=== PATIENT | female | born 1975 | race Caucasian/White ===

== ENCOUNTER → 2017-05-02 | Outpatient (CLI) | payer OTHER ==
[~2017-05-02] MED LIST: ALL180 PO; EFFSR150 PO; EFFSR75 PO; HYOS1TAB PO; LEVO175T23 PO; MOME50SP5; PRLSR20 PO; PRN10125 PO; SIMV40TA2 PO; [UNRECOGNIZED DRUG - CODE] PO; [UNRECOGNIZED DRUG - CODE] PO
== END | disposition home or self-care (01) ==
LOC: C.LABSPEC 14:10
PROVIDERS: ATTEND Physician Assistant
DX: L29.8 Other pruritus (principal)

== ENCOUNTER 2024-07-30 02:23 | Inpatient (IN) ==
--- NOTE | 2024-07-30 02:52 | Emergency Department Note ---
Impression & Plan Acute hypokalemia Admission ED Provider Note HPI: History obtained from patient. The patient is a 48-year-old female with history of diabetes, hypertension, IBS, presents emergency department with a chief complaint of worsening nausea over the past 3 days. Patient denies any vomiting. Patient states that she is on Ozempic and she has been taking a steady dose for the past year. Patient states that she has had nausea during this time but usually it is not this severe. On arrival here to the ED the patient is hemodynamically stable, she otherwise appears to be in no acute distress. Patient denies any recent fever, denies any vomiting, denies any diarrhea. Patient states that she typically does take Zofran when she gets nausea from her Ozempic however she recently ran out. ROS: - Per HPI Differential Diagnosis: Nonmechanical small bowel obstruction, medication side effect, critical electrolyte abnormalities, acute kidney injury/acute dehydration, viral gastroenteritis, amongst other potential pathologies. *Outpatient medications and allergy history reviewed. PE: General: Alert HEENT: Normocephalic, trachea midline Eyes: Extraocular eye movement is intact, no scleral erythema Pulmonary: Clear to auscultation bilaterally, no wheezing Cardio: Regular rate and rhythm GI: Abdomen is soft to palpation : No suprapubic tenderness MSK: No evidence of trauma or malformation of the extremities, no edema Skin: No evidence of rash Neuro: Alert, no focal deficits Psychiatric: Cooperative INDEPENDENT INTERPRETATIONS: quality assurance monitor final: (As interpreted by myself): - An order was placed for continuous cardiac monitoring - Patient was noted to be in sinus rhythm with a rate of 80 EKG: (As interpreted by myself): Rate: 81 Rhythm: Normal sinus rhythm Intervals: QTc 501 ms, otherwise within normal limits ST changes: No ST elevation Time: 0421 Interventions provided in ED: - IV fluid bolus, IV Zofran, potassium chloride Medical Decision Making: IV was established and lab work obtained, patient was placed on surveillance system monitor. Lab work shows no leukocytosis, hemoglobin is normal, platelet count is normal, CMP shows a critical hypokalemia 2.4, magnesium is within normal limits, serum bicarbonate level is elevated at 33, glucose is 262. EKG does show evidence of a mildly prolonged QT interval, given this in conjunction with hypokalemia patient will require admission. Patient was ordered oral potassium repletion as well as potassium K riders. Patient's abdomen is soft and nontender on my exam, I suspect her poor intake and nausea related to her Ozempic. I discussed all of the above findings with the patient, she is agreeable for admission. Case was discussed with the on-call hospitalist, Dr. Wagner, and the patient was placed for admission in stable condition. Consultants/Discussions held with other healthcare providers: - Hospitalist, Dr. Wagner Disposition discussion held by myself with: - Patient Diagnosis: 1. Hypokalemia, acute 2. Prolonged QT on EKG, acute 3. Nausea, acute Disposition: Admission Heladio Escalante DO Emergency Medicine Past Med/Surg History Problem List (Updated 07/30/24 @ 06:11 by Heladio Escalante DO) Acute hypokalemia (Acute) Irritable bowel syndrome (Chronic) Hypothyroidism (Chronic) Esophageal reflux (Chronic) Vulvitis Chronic vulvitis Diabetes mellitus (Acute) Dysmenorrhea (Acute) Hypertension (Acute) Medical History Diabetes Esophageal reflux History of polycystic ovarian syndrome Hypertension Hypothyroidism Irritable bowel syndrome Surgical History S/P appendectomy S/P cholecystectomy S/P tonsillectomy Family History Aunt Breast cancer thinks diagnosed before 50. unsure if they completed genetic testing Denies family history of Ovarian cancer Colorectal cancer Social History Smoking Status: Never smoker Do You Dip or Chew Tobacco: No; Preferred Language: Uzbek marital status: Feels Safe at Home: Yes Allergies Allergies Allergy/AdvReac Type Severity Reaction Status Date / Time No Known Allergies Allergy Mild Verified 07/30/24 05:36 Home Meds Home Medications Medication Instructions Recorded Confirmed omeprazole 40 mg capsule,delayed PO 03/19/19 02/28/20 release venlafaxine 150 mg PO 03/19/19 02/28/20 capsule,extended release 24 hr aripiprazole 5 mg tablet 5 mg PO DAILY 07/30/24 07/30/24 metformin 1,000 mg tablet 1,000 mg 2XD 07/30/24 07/30/24 omeprazole 20 mg capsule,delayed 20 mg DAILY 07/30/24 07/30/24 release Previous Rx's Medication Instructions Recorded ondansetron HCl 4 mg tablet 4 mg PO Q8H PRN nausea and 11/19/19 (Zofran) vomiting #10 tabs Results & Data (ED) Vital Signs Vital Signs - 24 hr 07/30/24 02:34 07/30/24 03:05 07/30/24 03:11 Temperature 37.1 C Temperature Source Oral Pulse Rate 87 77 81 Pulse Rhythm Respiratory Rate 20 16 Respiratory Depth Normal Blood Pressure 154/100 H 157/79 H Blood Pressure Mean 118 125 Pulse Oximetry 99 99 Oxygen Delivery Method Room Air Oxygen Flow Rate Sepsis Recent Fever Within 48 Hours No Sepsis New/Unexplained Change in Mental Status N/A Sepsis Action Taken by Nursing No Action Required 07/30/24 03:18 07/30/24 03:30 07/30/24 04:00 Temperature Temperature Source Pulse Rate 81 79 82 Pulse Rhythm Regular Respiratory Rate 20 18 18 Respiratory Depth Blood Pressure 168/88 H 170/80 H Blood Pressure Mean 118 109 Pulse Oximetry 99 98 99 Oxygen Delivery Method Room Air Oxygen Flow Rate 0 Sepsis Recent Fever Within 48 Hours Sepsis New/Unexplained Change in Mental Status Sepsis Action Taken by Nursing 07/30/24 04:30 07/30/24 05:00 Temperature Temperature Source Pulse Rate 82 84 Pulse Rhythm Respiratory Rate 17 19 Respiratory Depth Blood Pressure 167/87 H 129/67 Blood Pressure Mean 103 87 Pulse Oximetry 99 99 Oxygen Delivery Method Oxygen Flow Rate Sepsis Recent Fever Within 48 Hours Sepsis New/Unexplained Change in Mental Status Sepsis Action Taken by Nursing Laboratory Data 07/30/24 02:46 07/30/24 02:46 Lab Results 07/30/24 07/30/24 Range/Units 02:46 03:00 WBC 10.44 (4.8-10.8) K/ul RBC 5.33 (4.20-5.40) M/uL Hgb 14.0 (12.0-16.0) g/dl Hct 42.5 (37.0-47.0) % MCV 79.7 L (80.0-100.0) fL MCH 26.3 (25.0-34.0) pg MCHC 32.9 (32.0-36.0) g/dL RDW Std Deviation 42.2 (36.4-46.3) fL RDW Coeff of Kalina 14.7 H (11.5-14.5) % Plt Count 343 (130-400) K/uL MPV 9.6 (9.4-12.4) fL Immature Gran % (Auto) 0.4 % Neut % (Auto) 70.5 % Lymph % (Auto) 19.0 % [place] % (Auto) 8.5 % Eos % (Auto) 1.1 % Baso % (Auto) 0.5 % Neut # (Auto) 7.36 H (1.40-6.50) K/uL Lymph # (Auto) 1.98 (1.20-3.40) K/uL [place] # (Auto) 0.89 H (0.11-0.59) K/uL Eos # (Auto) 0.12 (0.00-0.50) K/uL Baso # (Auto) 0.05 (0.00-0.20) K/uL Immature Gran # (Auto) 0.04 (0.01-0.20) K/uL Sodium 136 (136-145) mmol/L Potassium 2.4 L* (3.5-5.1) mmol/L Chloride 91 L (98-107) mmol/L Carbon Dioxide 33 H (21-32) mmol/L Anion Gap 12 H (3-11) BUN 10 (6-23) mg/dl Creatinine 0.89 (0.6-1.2) mg/dl Est Cr Clr Drug Dosing 99.4 ml/min eGFR 78.93 BUN/Creatinine Ratio 11.2 (10-20) Glucose 262 H (70-99(Fasting)) mg/dl Calcium 10.0 (8.6-10.3) mg/dl Magnesium 1.7 (1.7-2.4) mg/dl Total Bilirubin 0.6 (0.2-1.0) mg/dl AST 14 (13-39) U/L ALT 11 (7-52) U/L Alkaline Phosphatase 91 (34-104) U/L Total Protein 8.3 (6.0-8.3) gm/dl Albumin 4.6 (3.4-5.0) gm/dl Globulin 3.7 (2.5-4.0) gm/dl Albumin/Globulin Ratio 1.2 (0.9-2) Lipase 25 (11-82) U/L Urine Color Yellow Urine Appearance Clear (Clear) Urine pH 5.5 (4.5-7.5) Ur Specific [place] 1.036 H (1.000-1.030) Urine Protein Negative (Negative) Urine Glucose (UA) 3+ H (Negative) Urine Ketones 1+ H (Negative) Urine Blood Negative (Negative) Urine Nitrite Negative (Negative) Urine Bilirubin Negative (Negative) Urine Urobilinogen Negative (Negative) Ur Leukocyte Esterase Negative (Negative) Administered Medications Potassium Chloride (K Angel / Wtr) 10 meq in 100 mls @ 100 mls/hr IV Q1H MAIDA Stop: 07/30/24 06:44 Last Admin: 07/30/24 04:48 Dose: 100 mls/hr Documented By: Infusion: 07/30/24 04:48 Dose: Infused Documented By: Admin: 07/30/24 04:48 Dose: 100 mls/hr Documented By: BOLA Magnesium Sulfate/Dextrose (Magnesium Sulfate / D5w) 1 gm in 100 mls @ 50 mls/hr IV Q2H MAIDA Stop: 07/30/24 09:14 Last Admin: 07/30/24 05:20 Dose: 50 mls/hr Documented By: BOLA Potassium Chloride 20 meq/ (Lactated Ringer's) 1,010 mls @ 60 mls/hr IV .[id number] ONE Stop: 07/30/24 22:39 Last Admin: 07/30/24 05:50 Dose: 60 mls/hr Documented By: BOLA Discontinued Medications Sodium Chloride (Nss) 1,000 mls @ 999 mls/hr IV .Q1H1M STA Stop: 07/30/24 03:46 Last Infusion: 07/30/24 04:22 Dose: Infused Documented By: Admin: 07/30/24 02:55 Dose: 999 mls/hr Documented By: BOLA Lisinopril (Lisinopril 10 Mg Tab) 10 mg PO NOW STA Stop: 07/30/24 05:07 Last Admin: 07/30/24 05:50 Dose: 10 mg Documented By: BOLA Ondansetron HCl (Ondansetron Inj 2 Mg/Ml 2 Ml Vial) 4 mg IV NOW STA Stop: 07/30/24 02:47 Last Admin: 07/30/24 02:55 Dose: 4 mg Documented By: BOLA Potassium Chloride (Potassium Chloride Pwd 20 Meq Pack) 40 meq PO NOW STA Stop: 07/30/24 04:05 Last Admin: 07/30/24 04:16 Dose: 40 meq Documented By: BOLA Potassium Chloride (Potassium Chloride Pwd 20 Meq Pack) 40 meq PO NOW STA Stop: 07/30/24 05:07 Last Admin: 07/30/24 05:18 Dose: 40 meq Documented By: BOLA Discharge Plan Visit Data Chief Complaint: Nausea Stated Complaint: EXTREME NAUSEA ED Provider: Heladio Escalante Discharge Problem: Acute hypokalemia Forms Stand Alone Forms: [employer] Prescriptions Prescriptions: No Action ondansetron HCl [Zofran] 4 mg tablet 4 mg PO Q8H PRN (Reason: nausea and vomiting) Qty: 10 0RF Rx Instructions: Take 1 tablet by mouth every 8 hours for nausea/vomiting. omeprazole 40 mg capsule,delayed release(DR/EC) PO Rx Instructions: Please clarify dose and frequency with patient venlafaxine 150 mg capsule,extended release 24hr PO Rx Instructions: Please clarify dose and frequency with patient aripiprazole 5 mg tablet 5 mg PO DAILY metformin 1,000 mg tablet 1,000 mg 2XD omeprazole 20 mg capsule,delayed release(DR/EC) 20 mg DAILY Referrals Referrals: Rajinder Meza MD [Primary Care Provider] -
[2024-07-30] MEDS: ONDANSETRON INJ 2 MG/ML 2 ML VIAL IV STA (02:55)
[2024-07-30] MEDS: SODIUM CHLORIDE 0.9% 1,000 ML IV STA (02:55)
[2024-07-30 03:24] LABS: Appearance Urine Clear (Clear); Bilirubin Urine Negative (Negative); Blood Urine Negative (Negative); Color Urine Yellow; Glucose Urine UA 3+ (Negative); Ketones Urine 1+ (Negative); Leukocyte Esterase Urine Negative (Negative); Nitrite Urine Negative (Negative); Protein Urine Negative (Negative); Specific Gravity Urine 1.036 (1.000-1.030); Urobilinogen Urine Negative (Negative); pH Urine 5.5 (4.5-7.5)
[2024-07-30 03:33] LABS: Basophils # (auto) 0.05 K/uL (0.00-0.20); Basophils % (auto) 0.5 %; Eosinophils # (auto) 0.12 K/uL (0.00-0.50); Eosinophils % (auto) 1.1 %; Hematocrit (blood only) 42.5 % (37.0-47.0); Immature Granulocytes # (auto) 0.04 K/uL (0.01-0.20); Immature Granulocytes % (auto) 0.4 %; Lymphocytes # (auto) 1.98 K/uL (1.20-3.40); Mean Corpuscular Hemoglobin 26.3 pg (25.0-34.0); Mean Corpuscular Hgb Conc 32.9 g/dL (32.0-36.0); Mean Corpuscular Volume 79.7 fL (80.0-100.0); Mean Platelet Volume 9.6 fL (9.4-12.4); Monocytes # (auto) 0.89 K/uL (0.11-0.59); Monocytes % (auto) 8.5 %; Neutrophils # (auto) 7.36 K/uL (1.40-6.50); Neutrophils % (auto) 70.5 %; Platelet Count 343 K/uL (130-400); RDW Coefficient of Variation 14.7 % (11.5-14.5); RDW Standard Deviation 42.2 fL (36.4-46.3); Red Blood Count 5.33 M/uL (4.20-5.40); White Blood Count 10.44 K/ul (4.8-10.8)
[2024-07-30 04:02] LABS: Albumin Globulin Ratio 1.2 (0.9-2); Albumin Level 4.6 gm/dl (3.4-5.0); BUN Creatinine Ratio 11.2 (10-20); Bilirubin,Total 0.6 mg/dl (0.2-1.0); Creatinine Clr Calc Pharmacy 99.4 ml/min; Globulin 3.7 gm/dl (2.5-4.0); Total Protein 8.3 gm/dl (6.0-8.3)
[2024-07-30] MEDS: POTASSIUM CHLORIDE PWD 20 MEQ PACK PO STA ×3 (04:16→20:13)
[2024-07-30 04:35] LABS: Magnesium 1.7 mg/dl (1.7-2.4)
[2024-07-30 04:36] LABS: Potassium 2.4 mmol/L (3.5-5.1)
[2024-07-30] MEDS: POTASSIUM CHLORIDE / WTR 10 MEQ/100 ML PLCT IV SCH (04:48)
[2024-07-30] MEDS ORDERED: PROMETHAZINE 12.5 MG/50.5 ML BAG IV PRN (05:08)
[2024-07-30] MEDS ORDERED: ACETAMINOPHEN 325 MG TAB PO PRN (05:08)
[2024-07-30] MEDS: MAGNESIUM SULFATE / D5W 1 GM/100 ML BAG IV SCH (05:20)
--- NOTE | 2024-07-30 05:44 | History & Physical Report ---
Date of Service July 30, 2024 Assessment & Plan (1) Acute hypokalemia: Plan: Hypokalemia Multifactorial: Decreased p.o. intake secondary to severe nausea symptoms possibly from home Ozempic Rx, patient maintenance dose may need to be decreased by prescribing pha rmacist Home diuretic contributory hypertension, elevated secondary to discomfort hyperlipidemia, on statin Rx GERD, stable on PPI DM2 on oral medications, suboptimal control as of hemoglobin A1c of 9.4 from 2022 hypothyroidism, TSH markedly elevated secondary to noncompliance with medication, patient missed taking prescription the last few months for unclear reasons Admit to med/tele Replace potassium Consider decreasing maintenance Ozempic dose on discharge given nausea symptoms leading to decreased p.o. intake IVF, hold home diuretic until patient euvolemic Titrate home lisinopril Basal bolus insulin adjusted for clear liquid diet for now, ISS BG goal 110-140, carb count coverage, update hemoglobin A1c Levothyroxine 200 mcg p.o. daily (patient home dose 150 mcg p.o. daily), recheck TSH outpatient after 6 weeks DVT prophylaxis per Lovenox subcu Full code Text document was generated using [employer] voice recognition software. It may contain grammatical or spelling errors. Kindly contact undersigned for clarification of any documentation item in question. History of Present Illness Chief Complaint: Nausea symptoms Primary Care Provider: Rajinder Meza MD History obtained from patient and records. Medical history significant for hypertension, hyperlipidemia, GERD, DM2 on oral medications, hypothyroidism, IBS, polycystic ovaries as per records, mood disorder Last confinement 2010 for enteritis and UTI. Few days history of worsening nausea symptoms without headache, abdominal pain, vomiting, chest pain, SOB. Usual loose stools as per patient. Symptoms started a day after last dose of weekly Ozempic Rx. No change in Ozempic dose for about 2 years now as per patient. Poor appetite at home. Patient consulted ER for evaluation. Medical History as above Surgical History : Tonsillectomy/adenoidectomy, appendectomy, cholecystectomy, dental surgery Family History : DM, skin cancer Personal/Social history : Non-smoker, no EtOH intake, [employer] employee Allergies Allergy/AdvReac Type Severity Reaction Status Date / Time No Known Allergies Allergy Mild Verified 07/30/24 05:36 Home Medications Medication Instructions Recorded Confirmed Type venlafaxine 150 mg 150 mg PO QAM 03/19/19 07/30/24 History capsule,extended release 24 hr aripiprazole 5 mg tablet 5 mg PO DAILY 07/30/24 07/30/24 History dapagliflozin propanediol 10 mg 10 mg DAILY 07/30/24 07/30/24 History tablet (Farxiga) diclofenac sodium 1 % topical gel 1 inch topical 3XD PRN Pain 07/30/24 07/30/24 History levothyroxine 125 mcg tablet 125 mcg DAILY 07/30/24 07/30/24 History lisinopril 10 10 - 12.5 tab DAILY 07/30/24 07/30/24 History mg-hydrochlorothiazide 12.5 mg tablet metformin 1,000 mg tablet 1,000 mg 2XD 07/30/24 07/30/24 History omeprazole 20 mg capsule,delayed 20 mg DAILY 07/30/24 07/30/24 History release ondansetron HCl 4 mg tablet 4 mg PO Q6H PRN Nausea 07/30/24 07/30/24 History rosuvastatin 40 mg tablet 40 mg PO DAILY 07/30/24 07/30/24 History semaglutide 2 mg/dose (8 mg/3 mL) 2 mg subcut WK 07/30/24 07/30/24 History subcutaneous pen injector (Ozempic) Past Med/Surg History Problem List (Updated 07/30/24 @ 06:11 by Heladio Escalante DO) Acute hypokalemia (Acute) Irritable bowel syndrome (Chronic) Hypothyroidism (Chronic) Esophageal reflux (Chronic) Vulvitis Chronic vulvitis Diabetes mellitus (Acute) Dysmenorrhea (Acute) Hypertension (Acute) Medical History Diabetes Esophageal reflux History of polycystic ovarian syndrome Hypertension Hypothyroidism Irritable bowel syndrome Surgical History S/P appendectomy S/P cholecystectomy S/P tonsillectomy Family History Aunt Breast cancer thinks diagnosed before 50. unsure if they completed genetic testing Denies family history of Ovarian cancer Colorectal cancer Social History Smoking Status: Never smoker Do You Dip or Chew Tobacco: No; Preferred Language: Mohawk marital status: Feels Safe at Home: Yes Review of Systems Review of Systems: As per HPI, all other systems reviewed and negative Physical Exam Physical Exam: GENERAL: Comfortable, pleasant, obese, no respiratory distress SKIN: Normal color, warm HEENT: [place] palpebral conjunctivae, no ptosis, dry buccal mucosa NECK : Supple, short neck, no tenderness CHEST : CTA, no tenderness HEART : RRR, no obvious murmurs ABDOMEN: Some distention, nontender EXTREMITIES : Bilateral LE swelling, no LE tenderness, palpable pulses, no other conspicuous deformities noted NEUROLOGIC : Coherent, no facial asymmetry, no other gross focality Results & Data Results & Data Vital Signs (Past 12 Hours) Vital Signs Temp Pulse Resp BP Pulse Ox O2 Del Method O2 Flow Rate 07/30/24 04:30 82 17 167/87 H 99 07/30/24 04:00 82 18 170/80 H 99 07/30/24 03:30 79 18 168/88 H 98 07/30/24 03:18 81 20 99 Room Air 0 07/30/24 03:11 81 07/30/24 03:05 77 16 157/79 H 99 07/30/24 02:34 37.1 C 87 20 154/100 H 99 Room Air Laboratory Results Laboratory Results WBC 10.44 K/ul (4.8-10.8) 07/30/24 02:46 RBC 5.33 M/uL (4.20-5.40) 07/30/24 02:46 Hgb 14.0 g/dl (12.0-16.0) 07/30/24 02:46 Hct 42.5 % (37.0-47.0) 07/30/24 02:46 MCV 79.7 fL (80.0-100.0) L 07/30/24 02:46 MCH 26.3 pg (25.0-34.0) 07/30/24 02:46 MCHC 32.9 g/dL (32.0-36.0) 07/30/24 02:46 RDW Std Deviation 42.2 fL (36.4-46.3) 07/30/24 02:46 RDW Coeff of Kalina 14.7 % (11.5-14.5) H 07/30/24 02:46 Plt Count 343 K/uL (130-400) 07/30/24 02:46 MPV 9.6 fL (9.4-12.4) 07/30/24 02:46 Immature Gran % (Auto) 0.4 % 07/30/24 02:46 Neut % (Auto) 70.5 % 07/30/24 02:46 Lymph % (Auto) 19.0 % 07/30/24 02:46 [place] % (Auto) 8.5 % 07/30/24 02:46 Eos % (Auto) 1.1 % 07/30/24 02:46 Baso % (Auto) 0.5 % 07/30/24 02:46 Neut # (Auto) 7.36 K/uL (1.40-6.50) H 07/30/24 02:46 Lymph # (Auto) 1.98 K/uL (1.20-3.40) 07/30/24 02:46 [place] # (Auto) 0.89 K/uL (0.11-0.59) H 07/30/24 02:46 Eos # (Auto) 0.12 K/uL (0.00-0.50) 07/30/24 02:46 Baso # (Auto) 0.05 K/uL (0.00-0.20) 07/30/24 02:46 Immature Gran # (Auto) 0.04 K/uL (0.01-0.20) 07/30/24 02:46 Sodium 136 mmol/L (136-145) 07/30/24 02:46 Potassium 2.4 mmol/L (3.5-5.1) L* 07/30/24 02:46 Chloride 91 mmol/L (98-107) L 07/30/24 02:46 Carbon Dioxide 33 mmol/L (21-32) H 07/30/24 02:46 Anion Gap 12 (3-11) H 07/30/24 02:46 BUN 10 mg/dl (6-23) 07/30/24 02:46 Creatinine 0.89 mg/dl (0.6-1.2) 07/30/24 02:46 Est Cr Clr Drug Dosing 99.4 ml/min 07/30/24 02:46 eGFR 78.93 07/30/24 02:46 BUN/Creatinine Ratio 11.2 (10-20) 07/30/24 02:46 Glucose 262 mg/dl (70-99(Fasting)) H 07/30/24 02:46 Calcium 10.0 mg/dl (8.6-10.3) 07/30/24 02:46 Magnesium 1.7 mg/dl (1.7-2.4) 07/30/24 02:46 Total Bilirubin 0.6 mg/dl (0.2-1.0) 07/30/24 02:46 AST 14 U/L (13-39) 07/30/24 02:46 ALT 11 U/L (7-52) 07/30/24 02:46 Alkaline Phosphatase 91 U/L (34-104) 07/30/24 02:46 Total Protein 8.3 gm/dl (6.0-8.3) 07/30/24 02:46 Albumin 4.6 gm/dl (3.4-5.0) 07/30/24 02:46 Globulin 3.7 gm/dl (2.5-4.0) 07/30/24 02:46 Albumin/Globulin Ratio 1.2 (0.9-2) 07/30/24 02:46 Lipase 25 U/L (11-82) 07/30/24 02:46 Urine Color Yellow 07/30/24 03:00 Urine Appearance Clear (Clear) 07/30/24 03:00 Urine pH 5.5 (4.5-7.5) 07/30/24 03:00 Ur Specific [place] 1.036 (1.000-1.030) H 07/30/24 03:00 Urine Protein Negative (Negative) 07/30/24 03:00 Urine Glucose (UA) 3+ (Negative) H 07/30/24 03:00 Urine Ketones 1+ (Negative) H 07/30/24 03:00 Urine Blood Negative (Negative) 07/30/24 03:00 Urine Nitrite Negative (Negative) 07/30/24 03:00 Urine Bilirubin Negative (Negative) 07/30/24 03:00 Urine Urobilinogen Negative (Negative) 07/30/24 03:00 Ur Leukocyte Esterase Negative (Negative) 07/30/24 03:00 Diagnostic Findings EKG as per my interpretation :Rate 80, NSR, LAD, LAFB, nonspecific T wave abnormalities
[2024-07-30] MEDS: POTASSIUM CHLORIDE 20 MEQ in LACTATED RINGER'S 1,000 ML IV ONE (05:50)
[2024-07-30] MEDS: lisinopril 10 MG TAB PO STA (05:50)
[2024-07-30] MEDS ORDERED: DICLOFENAC SOD 1% GEL 100 GM TUBE EXT PRN (06:25)
[2024-07-30 07:01] LABS: Thyroid Stimulating Hormone 45.271 uIu/ml (0.300-4.500)
[2024-07-30 07:15] LABS: Estimated Average Glucose 209 mg/dl; Hemoglobin A1C 8.9 % (4.5-5.6)
[2024-07-30] MEDS: POTASSIUM CHLORIDE PWD 20 MEQ PACK PO ONE (07:35)
[2024-07-30 07:38] LABS: T4 Free Thyroxine 0.52 ng/dl (0.61-1.60)
--- OUTSIDE RECORDS SUMMARY | 2024-07-30 07:51 | External Medical Summary | Summary of Care ---
Author Name Unknown Organization [facility] Address [address] [place] [address] Phone [phone] Care Team Providers Care Library Consultant Name Role Phone Derrick ZAVALA MD, Bee Groves Primary Care Provider [phone] Reason for Visit * Reason Onset Date Comments Medication Refill 05/13/2024 Encounter Details Date Type Department Care Team (Late st Contact Info) Description 05/13/[address] [facility] [address] [facility] [place] [address] Dorina Anne PA-C [address] [facility] [place] [address] Type 2 diabetes mellitus with hemoglobin A1c goal of less than 7.0% (HCC) Allergies No known active allergiesdocumented as of this encounter (statuses as of 05/20/2024) Medications Jasper Meyers Lancets 33GIndications:T ype 2 diabetes mellitus with hemoglobin A1c goal of less than 7.5% (HCC) 1 times daily to check blood sugars.E11.9 100 Each 023 Active Additional Information Patient not taking.Reported on 07/31/2023 OneTouch Verio In Vitro Strip (Glucose Blood)Indication s:Type 2 diabetes mellitus with hemoglobin A1c goal of less than 7.5% (HCC) Use up to 1 times a day E11.9 100 Strip 2 023 Active Additional Information Patient not taking.Reported on 07/31/2023 [employer] Fun[employer] w/Device KitIndications:T ype 2 diabetes mellitus with hemoglobin A1c goal of less than 7.5% (HCC) Use up to 4 times a day E11.9 1 Kit 023 Active Additional Information Patient not taking.Reported on 07/31/2023 Ondansetron 4 MG Oral Tablet Disintegrating (Zofran) Place 1 Tablet on tongue every 8 hours as needed for Nausea. dissolve on tongue. 30 Tablet 1 023 Active Diclofenac Sodium 1 % External Gel (Voltaren) Apply topically to affected area 3 times a day as needed for Pain. Apply to affected area 100 g 2 024 Active Levothyroxine Sodium 125 MCG Oral Tablet (Levoxyl) Take 1 Tablet by mouth in the morning. (at least 30 min prior to breakfast or other meds). 30 Tablet 11 024 Active Rosuvastatin Calcium 40 MG Oral Tablet (Crestor)Indicat ions:Hyperlipide amairani with target LDL less than 100 TAKE 1 TABLET BY MOUTH EVERY DAY IN THE MORNING 90 Tablet 2 024 Active Lisinopril-hydro CHLOROthiazide 10-12.5 MG Oral TabletIndication s:Elevated blood pressure, situational TAKE 1 TABLET BY MOUTH EVERY DAY IN THE MORNING 90 Tablet 2 024 Active Farxiga 10 MG Oral Tablet (Dapagliflozin Propanediol)Melanie cations:Type 2 diabetes mellitus with hemoglobin A1c goal of less than 7.5% (HCC) TAKE 1 TABLET BY MOUTH EVERY DAY IN THE MORNING 30 Tablet 11 024 Active Venlafaxine HCl ER 150 MG Oral Capsule Extended Release 24 Hour (Effexor XR)Indications:M oderate episode of recurrent major depressive disorder (HCC) TAKE 1 CAPSULE BY MOUTH EVERY DAY IN THE MORNING 90 Capsule 1 024 Active ARIPiprazole 5 MG Oral Tablet (Abilify) TAKE 1 TABLET BY MOUTH EVERY DAY IN THE MORNING 15 Tablet 024 Active Ozempic (2 MG/DOSE) 8 MG/3ML Subcutaneous Solution Pen-injector (Semaglutide (2 MG/DOSE))Indicat ions:Type 2 diabetes mellitus with hemoglobin A1c goal of less than 7.5% (HCC) INJECT 2 MG SUBCUTANEOUSLY ONE TIME PER WEEK 9 mL 1 025 Active metFORMIN HCl 1000 MG Oral Tablet (Glucophage)Melanie cations:Type 2 diabetes mellitus with hemoglobin A1c goal of less than 7.0% (HCC) Take 1 Tablet by mouth 2 times a day with morning and evening meals. 60 Tablet 025 Active Omeprazole 20 MG Oral Capsule Delayed Release (PriLOSEC)Indica tions:Esophageal reflux TAKE 1 CAPSULE BY MOUTH IN THE MORNING AND AT BEDTIME 60 Capsule 5 024 2024 Discontinued Venlafaxine HCl ER 75 MG Oral Capsule Extended Release 24 Hour (Effexor XR)Indications:M oderate episode of recurrent major depressive disorder (HCC) TAKE 1 CAPSULE BY MOUTH EVERY DAY IN THE MORNING 30 Capsule 5 024 2024 Discontinued metFORMIN HCl 1000 MG Oral Tablet (Glucophage)Melanei cations:Type 2 diabetes mellitus with hemoglobin A1c goal of less than 7.0% (HCC) TAKE 1 TABLET BY MOUTH 2 TIMES A DAY WITH MORNING AND EVENING MEALS 60 Tablet 5 024 2024 Discontinued(R efill) documented as of this encounter (statuses as of 05/20/2024) Active Problems Problem Noted Date Diagnosed Date Moderate episode of recurrent major depressive d isorder 07/31/2023 Major depressive disorder, recurrent, unspecifie d 04/07/2020 HTN, goal below 140/90 06/29/2015 Overview: Per HTN Protocol #27. Neoplasm of uncertain behavior of skin 4 Malaise and fatigue 12/12/2010 Myalgia and myositis 12/12/2010 Obesity, morbid (more than 1 00 lbs over ideal weight or BMI > 40) 10/06/2009 Overview (07/13/2015): Per Obesity Protocol, #19 ICD-10 update of inactive term DYSLIPIDEMIA, GOAL LDL BELOW 100 04/09/2009 Overview (04/09/2009): Per Lipid Taxonomy. Type 2 diabetes mellitus wit h hemoglobin A1c goal of less than 7.0% 02/05/2009 Overview (08/18/2015): Modified per Diabetes protocol #14. ICD-10 update of inactive term ESOPHAGEAL REFLUX 12/17/2008 Allergic rhinitis 01/21/2008 Other chronic allergic conjunctivitis 01/24/2007 IRON DEFIC ANEMIA NOS 11/27/2003 Hypothyroidism 07/30/2003 Irritable bowel syndrome Major depressive disorder Overview (02/14/2017): ICD-10 update of inactive term documented as of this encounter (statuses as of 05/20/2024) Resolved Problems Problem Noted Date Diagnosed Date Resolved Date HTN, GOAL BELOW 140/80 12/12/201107/28 Overview: Per HTN Protocol #27. HTN, GOAL BELOW 130/80 05/21/200912/14 Overview (05/21/2009): Per HTN Taxonomy. ADVANCE DIRECTIVE INFORMATION 06/12/2008 02/26/2024 Overview (06/12/2008): No, Advance Directive brochure given to patient. Dyslipidemia, goal to be determined 06/09/2008 04/09/2009 Overview (04/09/2009): Per Lipid Taxonomy. DM type 2, not at goal 07/18/200702/05 Overview (02/05/2009): Modified per Diabetes protocol #14. HTN, goal below 140/90 05/17/200705/21 Overview (05/21/2009): Per HTN Taxonomy. RHINITIS ALLERGIC, DUE TO POLLEN 10/18/2004 01/21/2008 ADVANCE DIRECTIVE INFORMATION 08/13/2004 01/21/2008 Overview (08/13/2004): No, Advance Directive brochure given to patient. documented as of this encounter (statuses as of 05/20/2024) Immunizations Name Administration Dates Next Due COVID-19 mRNA, LNP-s, No Pre serve, 2-Dose Series ([place]) 04/03/2021,07/17/2020,06/19/2020 Hepatitis B, 20+ yrs 09/20/2013,04/10/2013,03/1109/09/2013 Pneumococcal Polysaccharide PPV23 (Pneumovax) 11/21/2007 Seasonal Influenza Vac., MDV , IM, 0.5 mL (Fluzone) 02/19/2014,03/11/2013,02/04/2012,02/22,01/16/2009,02/26/2008,02/07/20 03,02/22/2002,04/04/2001,03/23/2000 01/16/2010 Seasonal Influenza Virus Vac cine, Unspecified Formulation 02/26/2008 Seasonal Influenza, Quadriva lent, No Preserve, IM 01/18/2020,02/09/2016 Seasonal Influenza, Quadriva lent, No Preserve, Peds 04/03/2021 TD, Preservative Free 04/27/2016 TDAP, Age 7 and older, IM (Adacel) 11/21/2007 documented as of this encounter Social History Tobacco Use Types Packs/Day Years Used Date Smoking Tobacco: Never Smokeless Tobacco: Never Comments:No passive smoke ex posure Alcohol Use Standard Drinks/Week Comments No 0 (1 standard drink = 0.6 oz pur e alcohol) PHQ-2 Answer Date Recorded PHQ Adult Total Score 0 12/16/2021 Hunger Vital Sign Answer Date Recorded Within the past 12 months, y ou worried that your food would run out before you got the money to buy more. Never true 11/04/19 23 Within the past 12 months, t he food you bought just didn't last and you didn't have money to get more. 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 * Telephone Encounter - Cristina Harris OSA - 05/14/2024 2:30 PM EST Contacted pt, left message, gave central scheduling number * Telephone Encounter - Juancho Richardson CMA - 05/14/2024 11:36 AM EST Please schedule pt with Derrick for future refills, temp 1 month supply sent. * Telephone Encounter - Bee Alcala III, MD - 05/14/2024 7:55 AM ESTSigned Prescriptions: Disp Refills metFORMIN HCl 1000 MG Oral Tablet (Glucoph*60 Tab*0 Sig: Take 1 Tablet by mouth 2 times a day with morning and evening meals.Authorizing Provider: BEE ALCALA III- * Telephone Encounter - Bee Alcala III, MD - 05/14/2024 7:55 AM EST appt * Telephone Encounter - Susan Soto LPN - 05/13/2024 3:35 PM ESTPending Prescriptions: Disp Refills metFORMIN HCl 1000 MG Oral Tablet (Glucoph*60 Tab*5 Sig: Take 1 Tablet by mouth 2 times a day with morning and evening meals. * Telephone Encounter - Adrienne Lim, KAL - 05/13/2024 3:31 PM EST Did you pend patient's preferred pharmacy and medication before forwarding?yes Pharmacy: [id number] [address] [facility] Pending Prescriptions: Disp Refills metFORMIN HCl 1000 MG Oral Tablet (Glucop*60 Tab*5 Sig: Take 1 Tablet by mouth 2 times a day with morning and evening meals. Last Visit: 12/16/2021 (in office), 07/31/2023 (telemedicine) Next Visit: Visit date not found If no future appointments scheduled, and last appointment is greater than a year ago, please schedule patient for a follow-up appointment Last date the medication was ordered: 12.18.23 Is this request for a controlled substance?No Urine Drug Screen:No results found. However, due to the size of the patient record, not all encounters were searched. Please check Results Review for a complete set of results. Patient Phone Numbers Labs: Lab Results Component Value Date/Time CREAT 0.61 08/25/2023 12:00 AM CREAT 0.7 04/01/2020 10:51 AM POTASSIUM 3.2 (L) 08/25/2023 12:00 AM POTASSIUM 3.7 04/01/2020 10:51 AM TSH \0.04 (L) 08/25/2023 12:00 AM TSH 20.10 (H) 04/01/2020 10:51 AM LDL 178 (H) 11/01/2022 10:40 AM LDL 90 03/09/2016 07:44 AM LDL NOT APPLICABLE 03/09/2016 07:44 AM LDLCALC 88 08/25/2023 12:00 AM ALT 19 06/29/2021 03:39 PM ALT 24 07/09/2018 01:33 PM HGBA1C 9.8 (H) 08/25/2023 12:00 AM HGBA1C 10.1 (H) 04/01/2020 10:51 AM documented in this encounter Plan of Treatment Scheduled Procedures Name Priority Associated Diagnoses Date/Ti me COLONOSCOPY FLEXIBLE PROXIMA L DIAGNOSTIC Recall Special screening for malignant neoplasms, colon Health Maintenance Due Date Last Done Comments HPV/Co-Test 10/05/2003 Pneumococcal Vaccine: 50+ Years (2 of 2 - PCV) 11/20/2008 11/21/2007 Mammogram 2013 Cologuard 2018 Colonoscopy 2018 Colorectal Cancer Screening 2018 Fecal Occult Blood Test 2018 Sigmoidoscopy 2018 Cervical Cancer Screening 01/03/2022 Pap Smear 01/03/2022 01/03/2019, 11/22, 12/10/2014 (Done elsewhere), Additional history exists Albumin/Creatinine Ratio 06/29/2022 022, 03/09/2016, 12/30/2014, Additional history exists Diabetic Foot Exam 06/29/2022 06/29/2021, 1 06/08/2019, 07/30/2018, Additional history exists Depression Monitoring 12/16/2022 12/16/2021 Diabetic Eye Exam 01/05/2023 01/05/2022, , 04/26/2018, Additional history exists Zoster Vaccines (1 of 2) 10/05/2023 B-12 11/02/2023 11/01/2022, 03/0 11/2021, 04/01/2020, Additional history exists HbA1c 02/25/2024 08/25/2023, 10/22, 06/29/2021, Additional history exists GFR 08/24/2024 08/25/2023, 10/22, 06/29/2021, Additional history exists TSH 08/24/2024 08/25/2023, 10/22, 06/29/2021, Additional history exists DTap/Tdap Vaccines (3 - Td or Tdap) 04/27/2026 04/27/2016, 11/21/2007 Lipid Panel 08/24/2028 08/25/2023, 10/22, 03/09/2016, Additional history exists Hepatitis B Vaccine Completed 09/20/2013, 04/10/2013, 03/11/2013 COVID-19 Vaccine Completed 03/02/2024, 02/2021, 07/17/2020, Additional history exists Influenza Vaccine (FLU shot) Completed 12/2023, 04/03/2021, 01/18/2020, Additional history exists HPV (Gardasil) Vaccine Aged Out No lo nger eligible based on patient's age to complete this topic MENINGOCOCCAL (MENACTRA/MENVEO) Aged Out No longer eligible based on patient's age to complete this topic documented as of this encounter Medical Devices Not on filedocumented as of this encounter Visit Diagnoses Diagnosis Type 2 diabetes mellitus with hemoglobin A1c goal of less than 7.0% (HCC) documented in this encounter Care Teams Library Consultant Relationship Specialty Start Date End Date Bee Alcala III, MD [address] [place] [address] PCP - General 06/06/02 documented as of this encounter
--- OUTSIDE RECORDS SUMMARY | 2024-07-30 07:51 | External Medical Summary | Summary of Care ---
Author Name Unknown Organization [facility] Address [address] [place] [address] Phone [phone] Care Team Providers Care Weed Cooking Operator Name Role Phone Derrick ZAVALA MD, John E Primary Care Provider [phone] Reason for Visit * Reason Onset Date Comments Encounter Created in Error 07/18/2024 Encounter Details Date Type Department Care Team (Late st Contact Info) Description 07/18/2024 Telephone Family Practice [facility] [address] [facility] [place] [address] Rajinder Meza III, MD [address] [place] [address] Encounter Created in Error Allergies No known active allergiesdocumented as of this encounter (statuses as of 07/18/2024) Medications OneTouch Delica Lancets 33GIndications:Typ e 2 diabetes mellitus with hemoglobin A1c goal of less than 7.5% ([facility]) 1 times daily to check blood sugars.E11.9 100 Each 11/11/19 23 Active Additional Information Patient not taking.Reported on 07/31/2023 OneTouch Verio In Vitro Strip (Glucose Blood)Indications: Type 2 diabetes mellitus with hemoglobin A1c goal of less than 7.5% (HCC) Use up to 1 times a day E11.9 100 Strip 11/11/19 23 Active Additional Information Patient not taking.Reported on 07/31/2023 [employer] w/Device KitIndications:Typ e 2 diabetes mellitus with hemoglobin A1c goal of less than 7.5% (HCC) Use up to 4 times a day E11.9 1 Kit 11/11/19 23 Active Additional Information Patient not taking.Reported on 07/31/2023 Ondansetron 4 MG Oral Tablet Disintegrating (Zofran) Place 1 Tablet on tongue every 8 hours as needed for Nausea. dissolve on tongue. 30 Tablet 1 01/12/20 23 Active Diclofenac Sodium 1 % External Gel (Voltaren) Apply topically to affected area 3 times a day as needed for Pain. Apply to affected area 100 g 2 08/04/19 24 Active Levothyroxine Sodium 125 MCG Oral Tablet (Levoxyl) Take 1 Tablet by mouth in the morning. (at least 30 min prior to breakfast or other meds). 30 Tablet 11 09/05/19 24 Active Rosuvastatin Calcium 40 MG Oral Tablet (Crestor)Indicatio ns:Hyperlipidemia with target LDL less than 100 TAKE 1 TABLET BY MOUTH EVERY DAY IN THE MORNING 90 Tablet 2 11/12/19 24 Active Lisinopril-hydroCH LOROthiazide 10-12.5 MG Oral TabletIndications: Elevated blood pressure, situational TAKE 1 TABLET BY MOUTH EVERY DAY IN THE MORNING 90 Tablet 2 11/12/19 24 Active Farxiga 10 MG Oral Tablet (Dapagliflozin Propanediol)Indica tions:Type 2 diabetes mellitus with hemoglobin A1c goal of less than 7.5% (HCC) TAKE 1 TABLET BY MOUTH EVERY DAY IN THE MORNING 30 Tablet 11 11/22/19 24 Active Venlafaxine HCl ER 150 MG Oral Capsule Extended Release 24 Hour (Effexor XR)Indications:Mod erate episode of recurrent major depressive disorder (HCC) TAKE 1 CAPSULE BY MOUTH EVERY DAY IN THE MORNING 90 Capsule 1 02/16/20 24 Active Ozempic (2 MG/DOSE) 8 MG/3ML Subcutaneous Solution Pen-injector (Semaglutide (2 MG/DOSE))Indicatio ns:Type 2 diabetes mellitus with hemoglobin A1c goal of less than 7.5% (HCC) INJECT 2 MG SUBCUTANEOUSLY ONE TIME PER WEEK 9 mL 1 04/26/19 25 Active metFORMIN HCl 1000 MG Oral Tablet (Glucophage)Indica tions:Type 2 diabetes mellitus with hemoglobin A1c goal of less than 7.0% (HCC) Take 1 Tablet by mouth 2 times a day with morning and evening meals. 60 Tablet 05/14/19 25 Active Omeprazole 20 MG Oral Capsule Delayed Release (PriLOSEC)Indicati ons:Esophageal reflux TAKE 1 CAPSULE BY MOUTH IN THE MORNING AND AT BEDTIME 60 Capsule 5 05/14/19 25 Active Venlafaxine HCl ER 75 MG Oral Capsule Extended Release 24 Hour (Effexor XR)Indications:Mod erate episode of recurrent major depressive disorder (HCC) TAKE 1 CAPSULE BY MOUTH EVERY DAY IN THE MORNING 30 Capsule 5 05/14/19 25 Active ARIPiprazole 5 MG Oral Tablet (Abilify) TAKE 1 TABLET BY MOUTH EVERY DAY IN THE MORNING 10 Tablet 07/11/19 25 Active documented as of this encounter (statuses as of 07/18/2024) Active Problems Problem Noted Date Diagnosed Date [...] as of this encounter (statuses as of 07/18/2024) Resolved Problems Problem Noted Date Diagnosed Date [...] as of this encounter (statuses as of 07/18/2024) Immunizations Name Administration Dates Next Due COVID-19 mRNA, LNP-s, No Pre serve, 2-Dose Series ([employer]) 04/03/2021,07/17/2020,06/19/2020 Hepatitis B, 20+ yrs 09/20/2013,04/10/2013,03/1109/09/2013 Pneumococcal Polysaccharide PPV23 (Pneumovax) 11/21/2007 Seasonal Influenza Vac., MDV , IM, 0.5 mL (Fluzone) 02/19/2014,03/11/2013,02/04/2012,02/22,01/16/2009,02/26/2008 01/16/2010 Seasonal Influenza Virus Vac cine, Unspecified [...] mushtaq e documented as of this encounter Plan of Treatment Scheduled Procedures [...] (Done elsewhere), Additional history exists Albumin/Creatinine Ratio 06/29/202206/29/2 022, 03/09/2016, 12/30/2014, Additional history exists Diabetic [...] on patient's age to complete this topic Meningitis B Vaccine (Bexsero/Trumemba) Aged Out No longer eligible based on patient's age to complete this topic documented as of this encounter Medical Devices Not on filedocumented as of this encounter Care Teams Weed Cooking Operator Relationship Specialty Start Date End Date Rajinder Meza III, MD [address] [facility] [place] [address] PCP - General 06/06/02 documented as of this encounter
--- OUTSIDE RECORDS SUMMARY | 2024-07-30 07:51 | External Medical Summary | Summary of Care ---
Author Name Unknown Organization [facility] Address [address] [place] [address] Phone [phone] Care Team Providers Care Health Navigator Name Role Phone Derrick ZAVALA MD, Bee Groves Primary Care Provider [phone] Reason for Visit * Reason Comments eRx-Medication Refill Encounter Details Date Type Department Care Team (Late st Contact Info) Description 07/08/2024 Refill Family Practice [facility] [address] [facility] [place] [address] Bee Alcala III, MD [address] [facility] [address] Allergies No known active allergiesdocumented as of this encounter (statuses as of 07/12/2024) Medications OneTouch Mira Lancets 33GIndications:Ty pe 2 diabetes mellitus with hemoglobin A1c goal of less than 7.5% (HCC) 1 times daily to check blood sugars.E11.9 100 Each 11 023 Active Additional Information Patient not taking.Reported on 07/31/2023 OneTouch Verio In Vitro Strip (Glucose Blood)Indications :Type 2 diabetes mellitus with hemoglobin A1c goal of less than 7.5% (HCC) Use up to 1 times a day E11.9 100 Strip 11 023 Active Additional Information Patient not taking.Reported on 07/31/2023 OneTouch Verio w/Device KitIndications:Ty pe 2 diabetes mellitus with hemoglobin A1c goal [...] Active Rosuvastatin Calcium 40 MG Oral Tablet (Crestor)Indicati ons:Hyperlipidemi a with target LDL less than 100 TAKE 1 TABLET BY MOUTH EVERY DAY IN THE MORNING 90 Tablet 2 024 Active Lisinopril-hydroC HLOROthiazide 10-12.5 MG Oral TabletIndications :Elevated blood pressure, situational TAKE 1 TABLET BY MOUTH EVERY DAY IN THE MORNING 90 Tablet 2 024 Active Farxiga 10 MG Oral Tablet (Dapagliflozin Propanediol)Indic ations:Type 2 diabetes mellitus with hemoglobin A1c goal of less than 7.5% (HCC) TAKE 1 TABLET BY MOUTH EVERY DAY IN THE MORNING 30 Tablet 11 024 Active Venlafaxine HCl ER 150 MG Oral Capsule Extended Release 24 Hour (Effexor XR)Indications:Mo derate episode of recurrent major depressive disorder (HCC) TAKE 1 CAPSULE BY MOUTH EVERY DAY IN THE MORNING 90 Capsule 1 024 Active Ozempic (2 MG/DOSE) 8 MG/3ML Subcutaneous Solution Pen-injector (Semaglutide (2 MG/DOSE))Indicati ons:Type 2 diabetes mellitus with hemoglobin A1c goal of less than 7.5% (HCC) INJECT 2 MG SUBCUTANEOUSLY ONE TIME PER WEEK 9 mL 1 025 Active metFORMIN HCl 1000 MG Oral Tablet (Glucophage)Indic ations:Type 2 diabetes mellitus with hemoglobin A1c goal of less than 7.0% (HCC) Take 1 Tablet by mouth 2 times a day with morning and evening meals. 60 Tablet 025 Active Omeprazole 20 MG Oral Capsule Delayed Release (PriLOSEC)Indicat ions:Esophageal reflux TAKE 1 CAPSULE BY MOUTH IN THE MORNING AND AT BEDTIME 60 Capsule 5 025 Active Venlafaxine HCl ER 75 MG Oral Capsule Extended Release 24 Hour (Effexor XR)Indications:Mo derate episode of recurrent major depressive disorder (HCC) TAKE 1 CAPSULE BY MOUTH EVERY DAY IN THE MORNING 30 Capsule 5 025 Active ARIPiprazole 5 MG Oral Tablet (Abilify) TAKE 1 TABLET BY MOUTH EVERY DAY IN THE MORNING 10 Tablet 025 Active ARIPiprazole 5 MG Oral Tablet (Abilify) TAKE 1 TABLET BY MOUTH EVERY DAY IN THE MORNING 15 Tablet 024 2024 Discontinued documented as of this encounter (statuses as of 07/12/2024) Active Problems Problem Noted Date Diagnosed Date [...] as of this encounter (statuses as of 07/12/2024) Resolved Problems Problem Noted Date Diagnosed Date [...] as of this encounter (statuses as of 07/12/2024) Immunizations Name Administration Dates Next Due COVID-19 mRNA, LNP-s, No Pre serve, 2-Dose Series ([employer]) 04/03/2021,07/17/2020,06/19/2020 Hepatitis B, 20+ yrs 09/20/2013,04/10/2013,03/1109/09/2013 Pneumococcal [...] 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 documented as of this encounter Miscellaneous Notes * Telephone Encounter - Cristina Harris OSA - 07/12/2024 11:53 AM EDT Attempted to contact pt, left message, gave central scheduling number * Telephone Encounter - Cristina Harris OSA - 07/10/2024 1:56 PM EDT Attempted to contact pt, left message, gave central scheduling number * Telephone Encounter - Bee Alcala III, MD - 07/10/2024 7:50 AM EDTSigned Prescriptions: Disp Refills ARIPiprazole 5 MG Oral Tablet (Abilify) 10 Tab*0 Sig: TAKE 1 TABLET BY MOUTH EVERY DAY IN THE MORNING Authorizing Provider: BEE ALCALA III * Telephone Encounter - Bee Alcala III, MD - 07/10/2024 7:50 AM EDT Appointment * Telephone Encounter - Che Cooper LPN - 07/09/2024 12:19 PM EDT Pending Prescriptions: Disp Refills ARIPiprazole 5 MG Oral Tablet [Pharmacy Me*15 Tab*0 Sig: TAKE 1 TABLET BY MOUTH EVERY DAY IN THE MORNING * Telephone Encounter - Che Cooper LPN - 07/09/2024 12:17 PM EDT Did you pend patient's preferred pharmacy and medication before forwarding?yes Pharmacy: [id number] Pending Prescriptions: Disp Refills ARIPiprazole 5 MG Oral Tablet (Abilify) [*15 Tab*0 Sig: TAKE 1 TABLET BY MOUTH EVERY DAY IN THE MORNING Last Visit: 12/16/2021 (in office), 07/31/2023 (telemedicine) Next Visit: Visit date not found If no future appointments scheduled, and last appointment is greater than a year ago, please schedule patient for a follow-up appointment Last date the medication was ordered: 02-17-2024 Is this request for a controlled substance?Yes, What was the last refill date 02/17/24 w/ quantity 15 and dosage 5mg and Urine Drug Screen Not completed Urine Drug Screen:No results found. However, due [...] AM HGBA1C 10.1 (H) 04/01/2020 10:51 AM * Telephone Encounter - Markel Upton - 07/08/2024 8:00 PM EDTPending Prescriptions: Disp Refills ARIPiprazole 5 MG Oral Tablet [Pharmacy Me*15 Tab*0 Sig: TAKE 1TABLET BY MOUTH EVERY DAY IN THE MORNING documented in this encounter Plan of Treatment [...] filedocumented as of this encounter Care Teams Health Navigator Relationship Specialty Start Date End Date Bee Alcala III, MD [address] [facility] [address] PCP - General 06/06/02 documented as of this encounter
--- OUTSIDE RECORDS SUMMARY | 2024-07-30 07:51 | External Medical Summary | Summary of Care ---
Author Name Unknown Organization [facility] Address [address] [place] [address] Phone [phone] Care Team Providers Care Tacking Stitch Remover Name Role Phone Derrick ZAVALA MD, Bee Groves Primary Care Provider [phone] Reason for Visit * Reason Comments eRx-Medication Refill Encounter Details Date Type Department Care Team (Late st Contact Info) Description 07/08/2024 Refill Family Practice [facility] 200 [facility] [place] [address] Bee Alcala III, MD 200 [place] [address] Allergies No known active allergiesdocumented as of this encounter (statuses as of 07/18/2024) Medications OneTouch Mira Lancets 33GIndications:Ty pe 2 [...] 1 times a day E11.9 100 Strip 023 Active Additional Information Patient not taking.Reported [...] mRNA, LNP-s, No Pre serve, 2-Dose Series (GoToTags) 04/03/2021,07/17/2020,06/19/2020 Hepatitis B, 20+ yrs 09/20/2013,04/10/2013,03/1109/09/2013 Pneumococcal [...] encounter Miscellaneous Notes * Telephone Encounter - Maira Emerson OSA - 07/18/2024 9:58 AM EDT Unable to Contact pt. Letter sent 07/18/2024 * Telephone Encounter - Cristina Harris OSA [...] preferred pharmacy and medication before forwarding?yes Pharmacy: [id number] [address] [facility] Pending Prescriptions: Disp Refills ARIPiprazole 5 MG [...] filedocumented as of this encounter Care Teams Tacking Stitch Remover Relationship Specialty Start Date End Date Bee Alcala III, MD [address] [place] [address] PCP - General 06/06/02 documented as of this encounter
--- OUTSIDE RECORDS SUMMARY | 2024-07-30 07:51 | External Medical Summary | Summary of Care ---
Author Name Unknown Organization [facility] Address [address] [place] [address] Phone [phone] Care Team Providers Care Education Teacher Name Role Phone Derrick ZAVALA MD, Rajinder Groves Primary Care Provider [phone] Reason for Visit * Reason Comments eRx-Medication Refill Encounter Details Date Type Department Care Team (Late st Contact Info) Description 07/06/2024 Refill Family Practice [facility] 200 [facility] [place] [address] Rajinder Meza III, MD 200 [facility] [place] [address] Type 2 diabetes mellitus with hemoglobin A1c goal of less than 7.0% (HCC) Allergies No known active allergiesdocumented as of this encounter (statuses as of 07/08/2024) Medications OneTouch Delica Lancets 33GIndications:Typ e 2 [...] Additional Information Patient not taking.Reported on 07/31/2023 Fired Up Christian WearTouch Knowledge Factorio w/Device KitIndications:Typ e 2 diabetes mellitus with [...] MORNING 90 Capsule 1 02/16/20 24 Active ARIPiprazole 5 MG Oral Tablet (Abilify) TAKE 1 TABLET BY MOUTH EVERY DAY IN THE MORNING 15 Tablet 02/17/20 24 Active Ozempic (2 MG/DOSE) 8 MG/3ML [...] MORNING 30 Capsule 5 05/14/19 25 Active documented as of this encounter (statuses as of 07/08/2024) Active Problems Problem Noted Date Diagnosed Date [...] as of this encounter (statuses as of 07/08/2024) Resolved Problems Problem Noted Date Diagnosed Date [...] as of this encounter (statuses as of 07/08/2024) Immunizations Name Administration Dates Next Due COVID-19 mRNA, LNP-s, No Pre serve, 2-Dose Series (Pfizer) 04/03/2021,07/17/2020,06/19/2020 Hepatitis B, 20+ yrs 09/20/2013,04/10/2013,03/1109/09/2013 Pneumococcal [...] encounter Miscellaneous Notes * Telephone Encounter - Micah Metzger [facility] - 07/08/2024 10:46 AM EDT Refused Prescriptions: Disp Refills metFORMIN HCl 1000 MG Oral Tablet (Glucoph*60 Tab*0 Sig: TAKE 1TABLET BY MOUTH 2 TIMES A DAY WITH MORNING AND EVENING MEALSRefused By: MICAH METZGER for Refusal: Patient Should Contact Provider First documented in this encounter Plan of Treatment [...] (HCC) documented in this encounter Care Teams Education Teacher Relationship Specialty Start Date End Date Rajinder Meza III, MD [address] [place] [address] PCP - General 06/06/02 documented as of this encounter
--- OUTSIDE RECORDS SUMMARY | 2024-07-30 07:52 | External Medical Summary | Summary of Care ---
Author Name Unknown Organization [facility] Address [address] [place] [address] Phone [phone] Care Team Providers Care Swatch Checker Name Role Phone Derrick ZAVALA MD, Bee Groves Primary Care Provider [phone] Reason for Visit * Reason Onset Date Comments Medication Refill 05/13/2024 Encounter Details Date Type Department Care Team (Late st Contact Info) Description 05/13/2024 Refill Family Practice [facility] 200 [facility] [place] [address] Dorina Anne PA-C 200 [facility] [place] [address] Type 2 diabetes mellitus with hemoglobin A1c goal of less than 7.0% (HCC) Allergies No known active allergiesdocumented as of this encounter (statuses as of 05/14/2024) Medications OneTouch Deldaniel Lancets 33GIndications:Ty pe 2 diabetes mellitus with hemoglobin A1c goal of less than 7.5% (HCC) 1 times daily to check blood sugars.E11.9 100 Each 11/11/19 Active Additional Information Patient not taking.Reported on [...] hemoglobin A1c goal of less than 7.5% ([facility]) Use up to 4 times a day E11.9 1 Kit 11/11/19 Active Additional Information Patient not taking.Reported on [...] to breakfast or other meds). 30 Tablet 09/05/19 24 Active Omeprazole 20 MG Oral Capsule Delayed Release (PriLOSEC)Indicat ions:Esophageal reflux TAKE 1 CAPSULE BY MOUTH IN THE MORNING AND AT BEDTIME 60 Capsule 11/12/19 24 Active Venlafaxine HCl ER 75 MG Oral Capsule Extended Release 24 Hour (Effexor XR)Indications:Mo derate episode of recurrent major depressive disorder (HCC) TAKE 1 CAPSULE BY MOUTH EVERY DAY IN THE MORNING 30 Capsule 11/12/19 24 Active Rosuvastatin Calcium 40 MG Oral Tablet (Crestor)Indicati ons:Hyperlipidemi a with target LDL less than 100 TAKE 1 TABLET BY MOUTH EVERY DAY IN THE MORNING 90 Tablet 2 11/12/19 24 Active Lisinopril-hydroC HLOROthiazide 10-12.5 MG Oral TabletIndications [...] evening meals. 60 Tablet 05/14/19 25 Active metFORMIN HCl 1000 MG Oral Tablet (Glucophage)Indic ations:Type 2 diabetes mellitus with hemoglobin A1c goal of less than 7.0% (HCC) TAKE 1 TABLET BY MOUTH 2 TIMES A DAY WITH MORNING AND EVENING MEALS 60 Tablet 5 12/18/19 24 025 Disconti nued(Ref ill) documented as of this encounter (statuses as of 05/14/2024) Active Problems Problem Noted Date Diagnosed Date [...] as of this encounter (statuses as of 05/14/2024) Resolved Problems Problem Noted Date Diagnosed Date [...] as of this encounter (statuses as of 05/14/2024) Immunizations Name Administration Dates Next Due COVID-19 mRNA, LNP-s, No Pre serve, 2-Dose Series (Motosmarty) 04/03/2021,07/17/2020,06/19/2020 Hepatitis B, 20+ yrs 09/20/2013,04/10/2013,03/1109/09/2013 Pneumococcal [...] encounter Miscellaneous Notes * Telephone Encounter - Bee Alcala III, [...] evening meals. * Telephone Encounter - Adrienne Lim OSA - 05/13/2024 3:31 PM EST Did you pend patient's preferred pharmacy and medication before forwarding?yes Pharmacy: [id number] [address] [place] [address] Pending Prescriptions: Disp Refills metFORMIN HCl 1000 [...] (Done elsewhere), Additional history exists Albumin/Creatinine Ratio 06/29/202206/29/ 022, 03/09/2016, 12/30/2014, Additional history exists Diabetic [...] (HCC) documented in this encounter Care Teams Swatch Checker Relationship Specialty Start Date End Date Bee Alcala III, MD 200 [facility] [place] [address] PCP - General 06/06/02 documented as of this encounter
--- OUTSIDE RECORDS SUMMARY | 2024-07-30 07:52 | External Medical Summary | Summary of Care ---
Author Name Unknown Organization [facility] Address [address] [place] [address] Phone [phone] Care Team Providers Care Powerhouse Laborer Name Role Phone Derrick ZAVALA MD, Bee Groves Primary Care Provider [phone] Reason for Visit * Reason Comments eRx-Medication Refill Encounter Details Date Type Department Care Team (Late st Contact Info) Description 05/14/2024 Refill Family Practice [facility] 200 [facility] [place] [address] Bee Alcala III, MD 200 [place] [address] Esophageal reflux; Moderate episode of recurrent major depressive disorder (HCC) Allergies No known active allergiesdocumented as of this encounter (statuses as of 05/14/2024) Medications OneTouch Delica Lancets 33GIndications:Ty pe 2 diabetes mellitus with hemoglobin A1c goal of less than 7.5% ([facility]) 1 times daily to check blood sugars.E11.9 100 Each 11 023 Active Additional Information Patient not taking.Reported on 07/31/2023 OneTouch Verio In Vitro Strip (Glucose Blood)Indications :Type 2 diabetes mellitus with hemoglobin A1c goal of less than 7.5% ([facility]) Use up to 1 times a day [...] THE MORNING 30 Capsule 5 025 Active Omeprazole 20 MG Oral Capsule [...] MORNING 30 Capsule 5 024 2024 Discontinued documented as of this [...] mRNA, LNP-s, No Pre serve, 2-Dose Series (WISHI) 04/03/2021,07/17/2020,06/19/2020 Hepatitis B, 20+ yrs 09/20/2013,04/10/2013,03/1109/09/2013 Pneumococcal [...] encounter Miscellaneous Notes * Telephone Encounter - Shalini Kahn, [facility] - 05/14/2024 10:19 AM EST Signed Prescriptions: Disp Refills Omeprazole 20 MG Oral Capsule Delayed Rele*60 Cap*5 Sig: TAKE 1 CAPSULE BY MOUTH IN THE MORNING AND AT BEDTIMEAuthorizing Provider: BEE ALCALA III User: SHALINI KAHN Venlafaxine HCl ER 75 MG Oral Capsule Exte*30 Cap*5 Sig: TAKE 1 CAPSULE BY MOUTH EVERY DAY IN THE MORNINGAuthorizing Provider: BEE ALCALA III User: SHALINI KAHN---- documented in this encounter Plan of Treatment [...] as of this encounter Visit Diagnoses Diagnosis Esophageal reflux Moderate episode of recurrent major depressive disorder (HCC) documented in this encounter Care Teams Powerhouse Laborer Relationship Specialty Start Date End Date Bee Alcala III, MD [address] [place], [place] [address] PCP - General 06/06/02 documented as of this encounter
--- OUTSIDE RECORDS SUMMARY | 2024-07-30 07:52 | External Medical Summary | Summary of Care ---
Author Name Unknown Organization [facility] Address [address] [place] [address] Phone [phone] Care Team Providers Care Technology Project Manager Name Role Phone Derrick ZAVALA MD, Rajinder Groves Primary Care Provider [phone] Reason for Visit * Reason Onset Date Comments Medication Refill 02/28/2024 Encounter Details Date Type Department Care Team (Late st Contact Info) Description 02/28/2024 Refill Family Practice [facility] 200 [place] [address] Rajinder Meza III, MD 200 [place] [address] Allergies No known active allergiesdocumented as of this encounter (statuses as of 04/03/2024) Medications OneTouch Mira Lancets 33GIndications:Typ e 2 diabetes mellitus with hemoglobin A1c goal of less than 7.5% ([facility]) 1 times daily to check blood sugars.E11.9 100 Each 11/11/19 23 Active Additional Information Patient not taking.Reported on 07/31/2023 OneTouch Verio In Vitro Strip (Glucose Blood)Indications: Type 2 diabetes mellitus with hemoglobin A1c goal of less than 7.5% (HCC) Use up to 1 times a day E11.9 100 Strip 11/11/19 23 Active Additional Information Patient not taking.Reported on 07/31/2023 Next Step Living w/Device KitIndications:Typ e 2 diabetes mellitus with [...] MORNING 30 Tablet 11 11/22/19 24 Active metFORMIN HCl 1000 MG Oral Tablet (Glucophage)Indica tions:Type 2 diabetes mellitus with hemoglobin A1c goal of less than 7.0% (HCC) TAKE 1 TABLET BY MOUTH 2 TIMES A DAY WITH MORNING AND EVENING MEALS 60 Tablet 12/18/19 24 Active Venlafaxine HCl ER 150 MG Oral Capsule Extended Release 24 Hour (Effexor XR)Indications:Mod erate episode of recurrent major depressive disorder (HCC) TAKE 1 CAPSULE BY MOUTH EVERY DAY IN THE MORNING 90 Capsule 1 02/16/20 Active ARIPiprazole 5 MG Oral Tablet (Abilify) TAKE 1 TABLET BY MOUTH EVERY DAY IN THE MORNING 15 Tablet 02/17/20 24 Active documented as of this encounter (statuses as of 04/03/2024) Active Problems Problem Noted Date Diagnosed Date [...] as of this encounter (statuses as of 04/03/2024) Resolved Problems Problem Noted Date Diagnosed Date [...] as of this encounter (statuses as of 04/03/2024) Immunizations Name Administration Dates Next Due COVID-19 mRNA, LNP-s, No Pre serve, 2-Dose Series (Mixertech) 04/03/2021,07/17/2020,06/19/2020 Hepatitis B, 20+ yrs 09/20/2013,04/10/2013,03/1109/09/2013 Pneumococcal [...] Last Done Comments HPV/Co-Test 10/05/2003 Pneumococcal Vaccine: Pediatrics (0 to 5 Years) and At-Risk Patients (6 to 64 Years) (2 of 2 - PCV) 11/20/2008 11/21/2007 [...] filedocumented as of this encounter Care Teams Technology Project Manager Relationship Specialty Start Date End Date Deuel III, Rajinder Groves MD 200 [facility], [place] [address] PCP - General 06/06/02 documented as of this encounter
--- OUTSIDE RECORDS SUMMARY | 2024-07-30 07:52 | External Medical Summary | Summary of Care ---
Author Name Unknown Organization [facility] Address [address] [place] [address] Phone [phone] Care Team Providers Care Senior Systems Programmer Name Role Phone Derrick ZAVALA MD, Bee Groves Primary Care Provider [phone] Reason for Visit * Reason Onset Date Comments Medication Refill 05/13/2024 Encounter Details Date Type Department Care Team (Late st Contact Info) Description 05/13/2024 Refill Family Practice [facility] [address] [place] [address] Dorina Anne PA-C [address] [place] [address] Type 2 diabetes mellitus with hemoglobin A1c goal of less than 7.0% (HCC) Allergies No known active allergiesdocumented as of this encounter (statuses as of 05/14/2024) Medications Jasper Meyers Lancets 33GIndications:T ype 2 [...] Additional Information Patient not taking.Reported on 07/31/2023 The Hut GroupTouch VerSupponor w/Device KitIndications:T ype 2 diabetes mellitus with [...] Discontinued metFORMIN HCl 1000 MG Oral Tablet (Glucophage)Melanie [...] mRNA, LNP-s, No Pre serve, 2-Dose Series (Razer) 04/03/2021,07/17/2020,06/19/2020 Hepatitis B, 20+ yrs 09/20/2013,04/10/2013,03/1109/09/2013 Pneumococcal [...] Miscellaneous Notes * Telephone Encounter - Cristina Harris, [facility] - 05/14/2024 2:30 PM EST Contacted pt, [...] pharmacy and medication before forwarding?yes Pharmacy: [id number] [id number] [facility] Pending Prescriptions: Disp Refills metFORMIN HCl [...] hemoglobin A1c goal of less than 7.0% ([facility]) documented in this encounter Care Teams Senior Systems Programmer Relationship Specialty Start Date End Date Bee Alcala III, MD 200 [place] [address] PCP - General 06/06/02 documented as of this encounter
--- OUTSIDE RECORDS SUMMARY | 2024-07-30 07:52 | External Medical Summary | Summary of Care ---
Author Name Unknown Organization [facility] Address [address] [place] [address] Phone [phone] Care Team Providers Care Drill Press Hand Name Role Phone Derrick ZAVALA MD, Bee Groves Primary Care Provider [phone] Reason for Visit * Reason Comments eRx-Medication Refill Encounter Details Date Type Department Care Team (Late st Contact Info) Description 03/26/2024 Refill Family Practice [facility] 200 [facility] [place] [address] Bee Alcala III, MD 200 [place] [address] Type 2 diabetes mellitus with hemoglobin A1c goal of less than 7.5% (HCC) Allergies No known active allergiesdocumented as of this encounter (statuses as of 03/28/2024) Medications OneTouch Delica Lancets 33GIndications:Ty pe 2 [...] other meds). 30 Tablet 11 024 Active Omeprazole 20 MG Oral Capsule Delayed Release (PriLOSEC)Indicat ions:Esophageal reflux TAKE 1 CAPSULE BY MOUTH IN THE MORNING AND AT BEDTIME 60 Capsule 024 Active Venlafaxine HCl ER 75 MG Oral Capsule Extended Release 24 Hour (Effexor XR)Indications:Mo derate episode of recurrent major depressive disorder (HCC) TAKE 1 CAPSULE BY MOUTH EVERY DAY IN THE MORNING 30 Capsule 024 Active Rosuvastatin Calcium 40 MG Oral Tablet (Crestor)Indicati ons:Hyperlipidemi a with target LDL less than 100 TAKE 1 TABLET BY MOUTH EVERY DAY IN THE MORNING 90 Tablet 2 024 Active Lisinopril-hydroC HLOROthiazide 10-12.5 MG Oral TabletIndications :Elevated blood pressure, situational TAKE 1 TABLET BY MOUTH EVERY DAY IN THE MORNING 90 Tablet 024 Active Farxiga 10 MG Oral Tablet (Dapagliflozin Propanediol)Indic ations:Type 2 diabetes mellitus with hemoglobin A1c goal of less than 7.5% (HCC) TAKE 1 TABLET BY MOUTH EVERY DAY IN THE MORNING 30 Tablet 024 Active metFORMIN HCl 1000 MG Oral Tablet (Glucophage)Indic ations:Type 2 diabetes mellitus with hemoglobin A1c goal of less than 7.0% (HCC) TAKE 1 TABLET BY MOUTH 2 TIMES A DAY WITH MORNING AND EVENING MEALS 60 Tablet 5 024 Active Venlafaxine HCl ER 150 MG [...] 2 MG SUBCUTANEOUSLY ONE TIME PER WEEK 3 mL 024 Active Ozempic (2 MG/DOSE) 8 MG/3ML Subcutaneous Solution Pen-injector (Semaglutide (2 MG/DOSE))Indicati ons:Type 2 diabetes mellitus with hemoglobin A1c goal of less than 7.5% (HCC) Inject 2 mg under the skin once a week. 6 mL 1 024 2023 Discontinued documented as of this encounter (statuses as of 03/28/2024) Active Problems Problem Noted Date Diagnosed Date [...] as of this encounter (statuses as of 03/28/2024) Resolved Problems Problem Noted Date Diagnosed Date [...] as of this encounter (statuses as of 03/28/2024) Immunizations Name Administration Dates Next Due COVID-19 mRNA, LNP-s, No Pre serve, 2-Dose Series (Dnevnik) 04/03/2021,07/17/2020,06/19/2020 Hepatitis B, 20+ yrs 09/20/2013,04/10/2013,03/1109/09/2013 Pneumococcal [...] Encounter - Bee Alcala III, MD - 03/28/2024 8:48 AM ESTSigned Prescriptions: Disp Refills Ozempic (2 MG/DOSE) 8 MG/3ML Subcutaneous *3 mL 0 Sig: INJECT 2 MG SUBCUTANEOUSLY ONE TIME PER WEEKAuthorizing Provider: BEE ALCALA III * Telephone Encounter - Clare Alfaro baby formula worker - 03/27/2024 12:37 PM EST Pending Prescriptions: Disp Refills Ozempic (2 MG/DOSE) 8 MG/3ML Subcutaneous *3 mL 0 Sig: INJECT 2 MG SUBCUTANEOUSLY ONE TIME PER WEEK * Telephone Encounter - Clare Alfaro baby formula worker - 03/27/2024 12:35 PM EST Received message from [facility] regarding patient needing an appointment. Call Placed, Unable to reach pt, as there was no answer and no VM available to leave message. Sent the patient a Markkit message to advise. Thank you for your assistance Clare Alfaro Product Merchandiser II [facility] 03/27/2024,12:35 PM * Telephone Encounter - Jaime Jones [facility] - 03/27/2024 12:19 PM EST Pending Prescriptions: Disp Refills Ozempic (2 MG/DOSE) 8 MG/3ML Subcutaneous *3 mL 0 Sig: INJECT 2 MG SUBCUTANEOUSLY ONE TIME PER WEEK * Telephone Encounter - Jaime Jones [facility] - 03/27/2024 12:18 PM EST Please contact patient so that an appointment can be scheduled with her PRIMARY CARE provider before this refill can be authorized. After contacting patient, please forward request to Bee Alcala III, MD. Last Visit: 12/16/2021 (in office), 07/31/2023 (telemedicine) Next Visit: Visit date not found Thank you, Jaime Jones, PharmD Clinical Pharmacist [facility] 03/27/24 12:18 PM [phone] * Telephone Encounter - Jaime Jones [facility] - 03/27/2024 12:15 PM EST Pending Prescriptions: Disp Refills Ozempic (2 MG/DOSE) 8 MG/3ML Subcutaneous*3 mL 0 Sig: INJECT 2 MG SUBCUTANEOUSLY ONE TIME PER WEEK Last Visit: 12/16/2021 (in office), 07/31/2023 (telemedicine) Next Visit: Visit date not found If no future appointments scheduled, and last appointment is greater than a year ago, please schedule patient for a follow-up appointment Last date the medication was ordered: 12/01/2023 Pharmacy: [id number] Is this request for a controlled substance? No Urine Drug Screen:No results found. However, due [...] elsewhere), Additional history exists Albumin/Creatinine Ratio 06/29/2022 032 022, 03/09/2016, 12/30/2014, Additional history exists Diabetic Foot Exam 06/29/2022 06/29/2021, 1 06/08/2019, 07/30/2018, Additional history exists Depression Monitoring 12/16/2022 12/16/2021 Diabetic Eye Exam 01/05/2023 01/05/2022, , 04/26/2018, Additional history exists Zoster Vaccines (1 of 2) 10/05/2023 B-12 11/02/2023 11/01/2022, 0311/2021, 04/01/2020, Additional history exists HbA1c 02/25/2024 08/25/2023, [...] A1c goal of less than 7.5% (HCC) documented in this encounter Care Teams Drill Press Hand Relationship Specialty Start Date End Date Bee Alcala III, MD [address] [place] [address] PCP - General 06/06/02 documented as of this encounter
--- OUTSIDE RECORDS SUMMARY | 2024-07-30 07:52 | External Medical Summary | Summary of Care ---
Author Name Unknown Organization [facility] Address [address] [place] [address] Phone [phone] Care Team Providers Care Abalone Fisherman Name Role Phone Derrick ZAVALA MD, Bee Groves Primary Care Provider [phone] Reason for Visit * Reason Comments eRx-Medication Refill Encounter Details Date Type Department Care Team (Late st Contact Info) Description 04/25/2024 Refill Family Practice [facility] [address] [facility] [place] [address] Bee Alcala III, MD 200 [place] [address] Type 2 diabetes mellitus with hemoglobin A1c goal of less than 7.5% (HCC) Allergies No known active allergiesdocumented as of this encounter (statuses as of 04/26/2024) Medications OneTouch Delica Lancets 33GIndications:Ty pe 2 [...] PER WEEK 9 mL 1 025 Active Ozempic (2 MG/DOSE) 8 MG/3ML Subcutaneous Solution Pen-injector (Semaglutide (2 MG/DOSE))Indicati ons:Type 2 diabetes mellitus with hemoglobin A1c goal of less than 7.5% (HCC) INJECT 2 MG SUBCUTANEOUSLY ONE TIME PER WEEK 3 mL 024 2024 Discontinued documented as of this encounter (statuses as of 04/26/2024) Active Problems Problem Noted Date Diagnosed Date [...] as of this encounter (statuses as of 04/26/2024) Resolved Problems Problem Noted Date Diagnosed Date [...] as of this encounter (statuses as of 04/26/2024) Immunizations Name Administration Dates Next Due COVID-19 mRNA, LNP-s, No Pre serve, 2-Dose Series (NeuralStem) 04/03/2021,07/17/2020,06/19/2020 Hepatitis B, 20+ yrs 09/20/2013,04/10/2013,03/1109/09/2013 Pneumococcal [...] encounter Miscellaneous Notes * Telephone Encounter - Hank Willis, [facility] - 04/26/2024 11:36 AM ESTSigned Prescriptions: Disp Refills Ozempic (2 MG/DOSE) 8 MG/3ML Subcutaneous *9 mL 1 Sig: INJECT 2 MG SUBCUTANEOUSLY ONE TIME PER WEEKAuthorizing Provider: BEE ALCALA III User: HANK BOCANEGRA documented in this encounter Plan of Treatment Scheduled Procedures Name Priority Associated Diagnoses Date/Ti me COLONOSCOPY FLEXIBLE PROXIMA L DIAGNOSTIC Recall Special screening for malignant neoplasms, colon Health Maintenance Due Date Last Done Comments HPV/Co-Test 10/05/2003 Pneumococcal Vaccine: 50+ Years (2 of 2 - PCV) 11/20/2008 11/21/2007 Pneumococcal Vaccine: Pediatrics (0 to 5 Years) and At-Risk Patients (6 to 18 Years and 19+ Years) (2 of 2 - PCV) 11/20/2008 [...] 04/01/2020, Additional history exists HbA1c 02/25/2024 08/25/2023, 0704/2022, 06/29/2021, Additional history exists GFR 08/24/2024 08/25/2023, [...] (HCC) documented in this encounter Care Teams Abalone Fisherman Relationship Specialty Start Date End Date Bee Alcala III, MD 200 [place] [address] PCP - General 06/06/02 documented as of this encounter
--- OUTSIDE RECORDS SUMMARY | 2024-07-30 07:52 | External Medical Summary | Summary of Care ---
Author Name Unknown Organization [facility] Address [address] [place] [address] Phone [phone] Care Team Providers Care Mobile Marketing Manager Name Role Phone Derrick ZAVALA MD, Bee Groves Primary Care Provider [phone] Reason for Visit * Reason Comments eRx-Medication Refill Encounter Details Date Type Department Care Team (Late st Contact Info) Description 02/14/2024 Refill Family Practice [facility] [address] [facility] [place] [address] Bee Alcala III, MD [address] [place] [address] Moderate episode of recurrent major depressive disorder (HCC) Allergies No known active allergiesdocumented as of this encounter (statuses as of 02/16/2024) Medications Medication Sig Dispensed Refills Start Date End Date Status OneToindia Meyers Lancets 33GIndications:Type 2 diabetes mellitus with hemoglobin A1c goal of less than 7.5% ([facility]) 1 times daily to check blood sugars.E11.9 100 Each 11 3 Active Additional Information Patient not taking.Reported on 07/31/2023 OneTouch Verio In Vitro Strip (Glucose Blood)Indications:T ype 2 diabetes mellitus with hemoglobin A1c goal of less than 7.5% ([facility]) Use up to 1 times a day E11.9 100 Strip 11 3 Active Additional Information Patient not taking.Reported on 07/31/2023 [place] w/Device KitIndications:Type 2 diabetes mellitus with hemoglobin A1c goal of less than 7.5% (HCC) Use up to 4 times a day E11.9 1 Kit 3 Active Additional Information Patient not taking.Reported on 07/31/2023 Ondansetron 4 MG Oral Tablet Disintegrating (Zofran) Place 1 Tablet on tongue every 8 hours as needed for Nausea. dissolve on tongue. 30 Tablet 1 3 Active Diclofenac Sodium 1 % External Gel (Voltaren) Apply topically to affected area 3 times a day as needed for Pain. Apply to affected area 100 g 2 4 Active ARIPiprazole 5 MG Oral Tablet (Abilify) Take 1 Tablet by mouth in the morning. 30 Tablet 5 4 Active Levothyroxine Sodium 125 MCG Oral Tablet (Levoxyl) Take 1 Tablet by mouth in the morning. (at least 30 min prior to breakfast or other meds). 30 Tablet 11 4 Active Omeprazole 20 MG Oral Capsule Delayed Release (PriLOSEC)Indicatio ns:Esophageal reflux TAKE 1 CAPSULE BY MOUTH IN THE MORNING AND AT BEDTIME 60 Capsule 5 4 Active Venlafaxine HCl ER 75 MG Oral Capsule Extended Release 24 Hour (Effexor XR)Indications:Mode rate episode of recurrent major depressive disorder (HCC) TAKE 1 CAPSULE BY MOUTH EVERY DAY IN THE MORNING 30 Capsule 5 4 Active Rosuvastatin Calcium 40 MG Oral Tablet (Crestor)Indication s:Hyperlipidemia with target LDL less than 100 TAKE 1 TABLET BY MOUTH EVERY DAY IN THE MORNING 90 Tablet 2 4 Active Lisinopril-hydroCHL OROthiazide 10-12.5 MG Oral TabletIndications:E levated blood pressure, situational TAKE 1 TABLET BY MOUTH EVERY DAY IN THE MORNING 90 Tablet 2 4 Active Farxiga 10 MG Oral Tablet (Dapagliflozin Propanediol)Indicat ions:Type 2 diabetes mellitus with hemoglobin A1c goal of less than 7.5% (HCC) TAKE 1 TABLET BY MOUTH EVERY DAY IN THE MORNING 30 Tablet 11 4 Active Ozempic (2 MG/DOSE) 8 MG/3ML Subcutaneous Solution Pen-injector (Semaglutide (2 MG/DOSE))Indication s:Type 2 diabetes mellitus with hemoglobin A1c goal of less than 7.5% (HCC) Inject 2 mg under the skin once a week. 6 mL 1 4 Active metFORMIN HCl 1000 MG Oral Tablet (Glucophage)Indicat ions:Type 2 diabetes mellitus with hemoglobin A1c goal of less than 7.0% (HCC) TAKE 1 TABLET BY MOUTH 2 TIMES A DAY WITH MORNING AND EVENING MEALS 60 Tablet 5 4 Active Venlafaxine HCl ER 150 MG Oral Capsule Extended Release 24 Hour (Effexor XR)Indications:Mode rate episode of recurrent major depressive disorder (HCC) TAKE 1 CAPSULE BY MOUTH EVERY DAY IN THE MORNING 90 Capsule 1 4 Active Venlafaxine HCl ER 150 MG Oral Capsule Extended Release 24 Hour (Effexor XR)Indications:Mode rate episode of recurrent major depressive disorder (HCC) TAKE 1 CAPSULE BY MOUTH EVERY MORNING 90 Capsule 4 02/16/20 24 Discontinued documented as of this encounter (statuses as of 02/16/2024) Active Problems Problem Noted Date Diagnosed Date Moderate episode of recurrent major depressive d isorder 07/31/2023 Major depressive disorder, recurrent, unspecifie d 04/07/2020 HTN, goal below 140/90 06/29/2015 Overview: Per HTN Protocol #27. Neoplasm of uncertain behavior of skin 4 Malaise and fatigue 12/12/2010 Myalgia and myositis 12/12/2010 Obesity, morbid (more than 1 00 lbs over ideal weight or BMI > 40) 10/06/2009 Overview: Per Obesity Protocol, #19 ICD-10 update of inactive term DYSLIPIDEMIA, GOAL LDL BELOW 100 04/09/2009 Overview: Per Lipid Taxonomy. Type 2 diabetes mellitus wit h hemoglobin A1c goal of less than 7.0% 02/05/2009 Overview: Modified per Diabetes protocol #14. ICD-10 update of inactive term ESOPHAGEAL REFLUX 12/17/2008 ADVANCE DIRECTIVE INFORMATION 06/12/2008 Overview: No, Advance Directive brochure given to patient. Allergic rhinitis 01/21/2008 Other chronic allergic conjunctivitis 01/24/2007 IRON DEFIC ANEMIA NOS 11/27/2003 Hypothyroidism 07/30/2003 Irritable bowel syndrome Major depressive disorder Overview: ICD-10 update of inactive term documented as of this encounter (statuses as of 02/16/2024) Resolved Problems Problem Noted Date Diagnosed Date Resolved Date HTN, GOAL BELOW 140/80 12/12/201107/28 Overview: Per HTN Protocol #27. HTN, GOAL BELOW 130/80 05/21/200912/14 Overview: Per HTN Taxonomy. Dyslipidemia, goal to be determined 06/09/2008 04/09/2009 Overview: Per Lipid Taxonomy. DM type 2, not at goal 07/18/200702/05 Overview: Modified per Diabetes protocol #14. HTN, goal below 140/90 05/17/200705/21 Overview: Per HTN Taxonomy. RHINITIS ALLERGIC, DUE TO POLLEN 10/18/2004 01/21/2008 ADVANCE DIRECTIVE INFORMATION 08/13/2004 01/21/2008 Overview: No, Advance Directive brochure given to patient. documented as of this encounter (statuses as of 02/16/2024) Immunizations Name Administration Dates Next Due COVID-19 mRNA, LNP-s, No Pre serve, 2-Dose Series ([employer]) 04/03/2021,07/17/2020,06/19/2020 Hepatitis B, 20+ yrs 09/20/2013,04/10/2013,03/1109/09/2013 Pneumococcal [...] money to get more. Never true 11/03/2022 Sex and Gender Information Value Date Recorded Sex Assigned at Female 07/30/2018 9:56 AM EDT Gender Identity Female 07/30/2018 9:56 AM EDT Sexual Orientation Straight 07/30/2018 9: 56 AM EDT Job Start Date Occupation Industry Not on file Not on file Not on file documented as of this encounter Miscellaneous Notes * Telephone Encounter - Bee Alcala III, MD - 02/16/2024 7:49 AM EDTSigned Prescriptions: Disp Refills Venlafaxine HCl ER 150 MG Oral Capsule Ext*90 Cap*1 Sig: TAKE 1 CAPSULE BY MOUTH EVERY DAY IN THE MORNINGAuthorizing Provider: BEE ALCALA III * Telephone Encounter - Koko Drew [facility] - 02/15/2024 2:43 PM EDT Pending Prescriptions: Disp Refills Venlafaxine HCl ER 150 MG Oral Capsule Ext*90 Cap*1 Sig: TAKE 1 CAPSULE BY MOUTH EVERY DAY IN THE MORNING * Telephone Encounter - Koko Drew [facility] - 02/15/2024 2:42 PM EDT Unable to authorize medication refills for pended medication(s) at this time. Part of the protocol criteria used for refill authorization was not satisfied. Patient needs BLOOD PRESSURE on file within the last year. Please approve if appropriate. Thanks, Koko Drew, PharmD Clinical Pharmacist [facility] ([facility]) [phone] 02/15/2024, 2:42 PM documented in this encounter Plan of Treatment [...] 11/01/2022, 03/0 11/2021, 04/01/2020, Additional history exists COVID-19 Vaccine ( season) 2023 03/24/2023, 04/03/2021, 07/17/2020, Additional history exists Influenza Vaccine (FLU shot) (#1) 2023 04/03/2021, 01/18/2020, 02/09/2016, Additional history exists HbA1c 02/25/2024 08/25/2023, 10/22, 06/29/2021, Additional history exists GFR 08/24/2024 08/25/2023, 10/22, 06/29/2021, Additional history exists TSH 08/24/2024 08/25/2023, 10/22, 06/29/2021, Additional history exists DTap/Tdap Vaccines (3 - Td or Tdap) 04/27/2026 04/27/2016, 11/21/2007 Lipid Panel 08/24/2028 08/25/2023, 10/22, 03/09/2016, Additional history exists Hepatitis B Vaccine Completed 09/20/2013, 04/10/2013, 03/11/2013 HPV (Gardasil) Vaccine Aged Out No lo nger eligible based on patient's age to complete this topic MENINGOCOCCAL (MENACTRA/MENVEO) Aged Out No longer eligible based on patient's age to complete this topic documented as of this encounter Medical Devices Not on filedocumented as of this encounter Visit Diagnoses Diagnosis Moderate episode of recurrent major depressive disorder (HCC) documented in this encounter Care Teams Mobile Marketing Manager Relationship Specialty Start Date End Date Bee Alcala III, MD [address] [place] [address] PCP - General 06/06/02 documented as of this encounter
--- OUTSIDE RECORDS SUMMARY | 2024-07-30 07:52 | External Medical Summary | Summary of Care ---
Author Name Unknown Organization [facility] Address [address] [place] [address] Phone [phone] Care Team Providers Care Instructor Painting Name Role Phone Derrick ZAVALA MD, Bee Groves Primary Care Provider [phone] Reason for Visit * Reason Onset Date Comments Medication Refill 05/13/2024 Encounter Details Date Type Department Care Team (Late st Contact Info) Description 05/13/2024 Refill Family Practice [facility] [address] [facility] [place] [address] Dorina Anne PA-C [address] [facility] [place] [address] Type 2 diabetes mellitus with hemoglobin A1c [...] Additional Information Patient not taking.Reported on 07/31/2023 [facility] w/Device KitIndications:T ype 2 diabetes mellitus with [...] mRNA, LNP-s, No Pre serve, 2-Dose Series ([employer]) 04/03/2021,07/17/2020,06/19/2020 Hepatitis B, 20+ yrs 09/20/2013,04/10/2013,03/1109/09/2013 Pneumococcal [...] encounter Miscellaneous Notes * Telephone Encounter - Kaiden Richardsonachi, [employer] - 05/14/2024 11:36 AM EST Please schedule [...] and medication before forwarding?yes Pharmacy: [id number] [address] [place] [address] Pending Prescriptions: Disp Refills metFORMIN HCl 1000 [...] elsewhere), Additional history exists Albumin/Creatinine Ratio 06/29/2022 03/ 022, 03/09/2016, 12/30/2014, Additional history exists Diabetic [...] (HCC) documented in this encounter Care Teams Instructor Painting Relationship Specialty Start Date End Date Bee Alcala III, MD [address] [place] [address] PCP - General 06/06/02 documented as of this encounter
[2024-07-30] MEDS ORDERED: GLUCOSE 10 TAB/TUBE PO PRN (08:01)
[2024-07-30] MEDS ORDERED: DEXTROSE 50% 50 ML SYRINGE IV PRN (08:01)
[2024-07-30] MEDS ORDERED: GLUCOSE 40% GEL 15 GM TUBE PO PRN (08:01)
[2024-07-30] MEDS ORDERED: CARBOHYDRATES FOR HYPOGLYCEMIA PO PRN (08:01)
[2024-07-30] MEDS ORDERED: GLUCAGON FOR INJ 1 MG VIAL SQ PRN (08:01)
[2024-07-30] MEDS ORDERED: LANTUS PER UNIT CHARGE SQ SCH (09:00)
[2024-07-30] MEDS: VENLAFAXINE HCL XR 150 MG CAPXR PO SCH (09:32)
[2024-07-30] MEDS: PANTOprazole 40 MG TAB PO SCH (09:32)
[2024-07-30] MEDS: ROSUVASTATIN CALCIUM 20 MG TAB PO SCH (09:33)
[2024-07-30] MEDS: ENOXAPARIN INJ 40 MG/0.4 ML SYR SQ SCH (09:33)
[2024-07-30] MEDS: ARIPiprazole 5 MG TAB PO SCH (09:33)
[2024-07-30] MEDS: LANTUS PER UNIT CHARGE SQ SCH (09:37)
[2024-07-30 09:46] LABS: Pregnancy Test, Urine Negative (Negative)
[2024-07-30] MEDS: INSULIN ASPART PER UNIT CHARGE SC SCH (10:13)
[2024-07-30 12:21] LABS: Base Excess VBG 4.4 mEq/L; HCO3 VBG 29 mmol/L; Oxygen Saturation VBG 79.3 %; PCO2 VBG 43 mmHg (38-50); PO2 VBG 46 mmHg; pH VBG 7.44 (7.36-7.41)
[2024-07-30] MEDS: VENLAFAXINE HCL XR 75 MG CAPXR PO ONE (12:39)
[2024-07-30 14:23] LABS: Phosphorus 3.6 mg/dl (2.5-4.9)
--- NOTE | 2024-07-30 17:15 | Hospitalist Progress Note ---
Date of Service July 30, 2024 Assessment & Plan (1) Acute hypokalemia: Plan: Intractable nausea-has not been able to keep anything down for the last day or 2 Denies any vomiting or diarrhea Noted to have significant hypokalemia on admission Multifactorial: Decreased p.o. intake secondary to severe nausea symptoms possibly from home Ozempic Rx, patient maintenance dose may need to be decreased by prescribing pharmacist Home diuretic contributory Has been receiving intravenous potassium supplement and regular monitored while in the hospital Consider decreasing maintenance Ozempic dose on discharge given nausea symptoms leading to decreased p.o. intake Hypertension, elevated secondary to discomfort Hyperlipidemia, on statin Rx GERD, stable on PPI DM2 on oral medications, suboptimal control as of hemoglobin A1c of 9.4 from 2022 -Basal bolus insulin adjusted for clear liquid diet for now, ISS BG goal 110- 140, carb count coverage, update hemoglobin A1c Hypothyroidism, TSH markedly elevated secondary to noncompliance with medication, patient missed taking prescription the last few months for unclear reasons Levothyroxine 200 mcg p.o. daily (patient home dose 150 mcg p.o. daily), recheck TSH outpatient after 6 weeks DVT prophylaxis per Lovenox subcu Full code Admission and Anticipated Discharge Date Admission Date: July 30, 2024 Subjective 07/30/2024 Patient was seen and examined in medical floor She was admitted with profound nausea without vomiting and without diarrhea noted to have severe electrolyte imbalance on admission She has been feeling better and electrolytes are being replaced Review of Systems Review of Systems: All systems reviewed and unremarkable except as noted below Physical Exam Physical Exam: Lying in bed without any acute distress Constitutional: well developed, well nourished, + ill appearing and + obese Eyes: PERRL, conjunctivae normal, anicteric sclerae ENMT: external ear and nose normal, oropharynx normal Neck: trachea midline, no thyromegaly Respiratory: no respiratory distress Auscultation: lungs clear to auscultation bilaterally Cardiovascular: Rate/Rhythm: regular rate and regular rhythm; not tachycardic Heart Sounds: normal S1 and normal S2; no murmur Extremities: no edema Gastrointestinal (Abdomen): Inspection/Auscultation: + abdomen distended and normal bowel sounds Percussion/Palpation: abdomen soft; abdomen nontender Musculoskeletal: No acute arthritis involving any of the joint Neurologic: normal touch/pain/proprioception and moves all extremities; no focal motor deficits Psychiatric: A+Ox3, euthymic affect Lymphatic: no cervical or axillary lymphadenopathy Results & Data Results & Data Vital Signs (Past 12 Hours) Vital Signs Temp Pulse Pulse Resp BP BP Pulse Ox 07/30/24 12:25 93 H 18 127/63 96 07/30/24 12:17 16 07/30/24 12:16 07/30/24 12:00 98 H 17 07/30/24 11:51 91 H 17 07/30/24 11:42 89 24 07/30/24 11:30 88 18 07/30/24 11:24 102 H 16 07/30/24 11:12 87 22 07/30/24 11:06 86 21 07/30/24 10:57 86 22 07/30/24 10:42 90 21 07/30/24 10:30 98 H 13 07/30/24 10:26 36.7 C 101 H 20 139/92 98 07/30/24 10:21 92 H 21 07/30/24 10:18 91 H 21 07/30/24 10:00 92 H 17 07/30/24 09:42 85 17 07/30/24 09:30 92 H 17 95 07/30/24 09:30 139/79 07/30/24 09:30 139/79 07/30/24 09:30 139/79 07/30/24 09:27 85 21 92 07/30/24 09:03 92 H 21 92 07/30/24 09:00 129/77 07/30/24 08:57 84 21 91 07/30/24 08:51 87 22 92 07/30/24 08:33 85 21 94 07/30/24 08:30 138/72 07/30/24 08:30 138/72 07/30/24 08:15 85 20 93 07/30/24 08:12 85 07/30/24 08:03 86 21 95 07/30/24 08:00 132/74 07/30/24 08:00 132/74 07/30/24 08:00 132/74 07/30/24 08:00 132/74 07/30/24 08:00 132/74 07/30/24 08:00 132/74 07/30/24 08:00 132/74 07/30/24 08:00 132/74 07/30/24 08:00 132/74 07/30/24 08:00 132/74 07/30/24 07:54 83 20 95 07/30/24 07:42 96 H 15 99 07/30/24 07:33 82 4 L 98 07/30/24 07:30 133/63 07/30/24 07:30 133/63 07/30/24 07:30 133/63 07/30/24 07:30 133/63 07/30/24 07:30 133/63 07/30/24 07:30 133/63 07/30/24 07:30 133/63 07/30/24 07:30 133/63 07/30/24 07:18 82 18 97 07/30/24 06:01 86 18 165/87 H 99 07/30/24 05:00 84 19 129/67 99 07/30/24 04:30 82 17 167/87 H 99 07/30/24 04:00 82 18 170/80 H 99 07/30/24 03:30 79 18 168/88 H 98 Pulse Ox O2 Del Method O2 Del Method 07/30/24 12:25 Room Air 07/30/24 12:17 07/30/24 12:16 96 Room Air 07/30/24 12:00 07/30/24 11:51 07/30/24 11:42 07/30/24 11:30 07/30/24 11:24 07/30/24 11:12 07/30/24 11:06 07/30/24 10:57 07/30/24 10:42 07/30/24 10:30 07/30/24 10:26 Room Air 07/30/24 10:21 07/30/24 10:18 07/30/24 10:00 07/30/24 09:42 07/30/24 09:30 07/30/24 09:30 07/30/24 09:30 07/30/24 09:30 07/30/24 09:27 07/30/24 09:03 07/30/24 09:00 07/30/24 08:57 07/30/24 08:51 07/30/24 08:33 07/30/24 08:30 07/30/24 08:30 07/30/24 08:15 07/30/24 08:12 07/30/24 08:03 07/30/24 08:00 07/30/24 08:00 07/30/24 08:00 07/30/24 08:00 07/30/24 08:00 07/30/24 08:00 07/30/24 08:00 07/30/24 08:00 07/30/24 08:00 07/30/24 08:00 07/30/24 07:54 07/30/24 07:42 07/30/24 07:33 07/30/24 07:30 07/30/24 07:30 07/30/24 07:30 07/30/24 07:30 07/30/24 07:30 07/30/24 07:30 07/30/24 07:30 07/30/24 07:30 07/30/24 07:18 07/30/24 06:01 07/30/24 05:00 07/30/24 04:30 07/30/24 04:00 07/30/24 03:30 Laboratory Results Short CBC 07/30/24 Range/Units 02:46 WBC 10.44 (4.8-10.8) K/ul Hgb 14.0 (12.0-16.0) g/dl Hct 42.5 (37.0-47.0) % Plt Count 343 (130-400) K/uL BMP 07/30/24 07/30/24 02:46 12:09 Sodium 136 Potassium 2.4 L* 3.3 L D Chloride 91 L Carbon Dioxide 33 H BUN 10 Creatinine 0.89 Glucose 262 H Calcium 10.0 Liver Function 07/30/24 Range/Units 02:46 Total Bilirubin 0.6 (0.2-1.0) mg/dl AST 14 (13-39) U/L ALT 11 (7-52) U/L Alkaline Phosphatase 91 (34-104) U/L Albumin 4.6 (3.4-5.0) gm/dl Urine 07/30/24 Range/Units 03:00 Urine Color Yellow Urine Appearance Clear (Clear) Urine pH 5.5 (4.5-7.5) Ur Specific [place] 1.036 H (1.000-1.030) Urine Protein Negative (Negative) Urine Glucose (UA) 3+ H (Negative) Medications Administered Current Inpatient Medications Acetaminophen (Acetaminophen 325 Mg Tab) 650 mg PO QID PRN PRN Reason: pain/fever Stop: 08/29/24 05:07 Aripiprazole (Aripiprazole 5 Mg Tab) 5 mg PO DAILY MAIDA Stop: 08/29/24 08:59 Last Admin: 07/30/24 09:33 Dose: 5 mg Dextrose (Dextrose 50% 50 Ml Syringe) 25 - 50 ml IV UD PRN; Protocol PRN Reason: Hypoglycemia Protocol Stop: 08/29/24 08:00 Enoxaparin Sodium (Enoxaparin Inj 40 Mg/0.4 Ml Syr) 40 mg SQ QAM MAIDA Stop: 08/29/24 08:59 Last Admin: 07/30/24 09:33 Dose: 40 mg Glucagon (Glucagon For Inj 1 Mg Vial) 1 mg SQ UD PRN; Protocol PRN Reason: Hypoglycemia Protocol Stop: 08/29/24 08:00 Glucose (Glucose 40% Gel 15 Gm Tube) 15 - 30 gm PO UD PRN; Protocol PRN Reason: Hypoglycemia Protocol Stop: 08/29/24 08:00 Glucose (Glucose 10 Tab/Tube) 4 - 8 tab PO UD PRN; Protocol PRN Reason: Hypoglycemia Protocol Stop: 08/29/24 08:00 Promethazine HCl (Phenergan) 12.5 mg in 50.5 mls @ 202 mls/hr IV Q6H PRN PRN Reason: Nausea And Vomiting Stop: 08/29/24 05:07 Potassium Chloride 20 meq/ (Lactated Ringer's) 1,010 mls @ 60 mls/hr IV .[id number] ONE Stop: 07/30/24 22:39 Last Admin: 07/30/24 05:50 Dose: 60 mls/hr Insulin Aspart (Insulin Aspart Per Unit Charge) 0 units SC ACHS [facility] Stop: 08/29/24 08:00 Last Admin: 07/30/24 11:54 Dose: 3 units Insulin Glargine (Lantus Per Unit Charge) 10 units SQ DAILY [facility] Stop: 08/29/24 08:59 Last Admin: 07/30/24 09:37 Dose: 10 units Levothyroxine Sodium (Levothyroxine Sodium 200 Mcg Tablet) 200 mcg PO DAILYBB [facility] Stop: 08/30/24 06:29 Lisinopril (Lisinopril 20 Mg Tab) 20 mg PO QAM [facility] Stop: 08/30/24 08:59 Miscellaneous (Carbohydrates For Hypoglycemia ) 15 - 30 gm PO UD PRN PRN Reason: Hypoglycemia Protocol Stop: 08/29/24 08:00 Pantoprazole Sodium (Pantoprazole 40 Mg Tab) [facility] Stop: 08/29/24 08:59 Last Admin: 07/30/24 09:32 Dose: 40 mg Rosuvastatin Calcium (Rosuvastatin Calcium 20 Mg Tab) 40 mg PO DAILY [facility] Stop: 08/29/24 08:59 Last Admin: 07/30/24 09:33 Dose: 40 mg Venlafaxine HCl (Venlafaxine Hcl Xr 75 Mg Capxr) 225 mg PO QAM [facility] Stop: 08/30/24 08:59
--- NOTE | 2024-07-30 21:43 | Electrocardiogram Report ---
Test Reason : Blood Pressure : */* mmHG Vent. Rate : 81 BPM Atrial Rate : 81 BPM P-R Int : 172 ms QRS Dur : 90 ms QT Int : 420 ms P-R-T Axes : 17 0 93 degrees QTcB Int : 488 ms Normal sinus rhythm Nonspecific ST and T wave abnormality Prolonged QT Abnormal ECG When compared with ECG of 04-Sep-2008 20:40, QT has lengthened Confirmed by Abdiaziz Bocanegra ([id number]) on 07/30/2024 9:43:19 PM Referred By: REFERRED SELF Confirmed By: Abdiaziz Bocanegra
[2024-07-31] MEDS: LEVOTHYROXINE SODIUM 200 MCG TABLET PO SCH (05:30)
[2024-07-31 07:36] LABS: Calcium 8.6 mg/dl (8.6-10.3); Phosphorus 2.8 mg/dl (2.5-4.9); Potassium 3.1 mmol/L (3.5-5.1)
[2024-07-31] MEDS: POTASSIUM CHLORIDE / WTR 10 MEQ/100 ML PLCT IV SCH (08:44)
[2024-07-31] MEDS: POTASSIUM CHLORIDE CRTAB 20 MEQ TABCR PO STA (08:44)
[2024-07-31] MEDS: lisinopril 20 MG TAB PO SCH (08:45)
[2024-07-31] MEDS: VENLAFAXINE HCL XR 75 MG CAPXR PO SCH (08:46)
--- NOTE | 2024-07-31 12:09 | Hospitalist Progress Note ---
Date of Service July 31, 2024 Assessment & Plan (1) Acute hypokalemia: Plan: Intractable nausea-has not been able to keep anything down for the last day or 2 Denies any vomiting or diarrhea Noted to have significant hypokalemia on admission Multifactorial: Decreased p.o. intake secondary to severe nausea symptoms possibly from home Ozempic Rx, patient maintenance dose may need to be decreased by prescribing pharmacist Home diuretic contributory Has been receiving intravenous potassium supplement and regular monitored while in the hospital Consider decreasing maintenance Ozempic dose on discharge given nausea symptoms leading to decreased p.o. intake Potassium remains low at 3.1 and she was given 20 IV and 40 oral Diet advanced to regular diabetic and if a recheck of PRP is normal she will be going home this afternoon For ongoing nausea and hypokalemia her watch intake will be on hold and further dosing and/or restarting will be as per PCP Hypertension, elevated secondary to discomfort Hyperlipidemia, on statin Rx GERD, stable on PPI DM2 on oral medications, suboptimal control as of hemoglobin A1c of 9.4 from 2022-hemoglobin A1c is 8.9 as of 07/30/2024 -Basal bolus insulin adjusted for clear liquid diet for now, ISS BG goal 110- 140, carb count coverage, update hemoglobin A1c Hypothyroidism, TSH markedly elevated secondary to noncompliance with medication, patient missed taking prescription the last few months for unclear reasons Levothyroxine 200 mcg p.o. daily (patient home dose 150 mcg p.o. daily), recheck TSH outpatient after 6 weeks She will have TSH checked in about 6 weeks as an outpatient [facility] Full code Admission and Anticipated Discharge Date Admission Date: July 30, 2024 Subjective 07/30/2024 Patient was seen and examined in medical floor She was admitted with profound nausea without vomiting and without diarrhea noted to have severe electrolyte imbalance on admission She has been feeling better and electrolytes are being replaced 07/31/2024 The patient was seen and examined in medical telemetry unit She has been feeling much better and denies any more nausea and has been eating reasonably No diarrhea She has been ambulating in the room and in the hallway without any difficulties Review of Systems 2 Review of Systems: All systems reviewed and unremarkable except as noted below Physical Exam Physical Exam: Lying in bed without any acute distress Constitutional: well developed, well nourished, + ill appearing and + obese Eyes: PERRL, conjunctivae normal, anicteric sclerae ENMT: external ear and nose normal, oropharynx normal Neck: trachea midline, no thyromegaly Respiratory: no respiratory distress Auscultation: lungs clear to auscultation bilaterally Cardiovascular: Rate/Rhythm: regular rate and regular rhythm; not tachycardic Heart Sounds: normal S1 and normal S2; no murmur Extremities: no edema Gastrointestinal (Abdomen): Inspection/Auscultation: + abdomen distended and normal bowel sounds Percussion/Palpation: abdomen soft; abdomen nontender Neurologic: normal touch/pain/proprioception and moves all extremities; no focal motor deficits Psychiatric: A+Ox3, euthymic affect Lymphatic: no cervical or axillary lymphadenopathy Results & Data Results & Data Vital Signs (Past 12 Hours) Vital Signs Temp Pulse Pulse Resp BP Pulse Ox O2 Del Method 07/31/24 11:11 37.0 C 78 22 176/84 H 95 Room Air 07/31/24 07:25 37.0 C 79 18 125/78 94 Room Air 07/31/24 07:02 74 07/31/24 04:06 36.7 C 74 20 123/79 96 Room Air Laboratory Results [facility] 07/30/24 07/31/24 12:09 05:58 Sodium 139 Potassium 3.3 L D 3.1 L Chloride 102 Carbon Dioxide 33 H BUN 6 Creatinine 0.60 Glucose 154 H Calcium 8.6 Medications Administered Current Inpatient Medications Acetaminophen (Acetaminophen 325 Mg Tab) 650 mg PO QID PRN PRN Reason: pain/fever Stop: 08/29/24 05:07 Aripiprazole (Aripiprazole 5 Mg Tab) 5 mg PO DAILY MAIDA Stop: 08/29/24 08:59 Last Admin: 07/31/24 08:45 Dose: 5 mg Dextrose (Dextrose 50% 50 Ml Syringe) 25 - 50 ml IV UD PRN; Protocol PRN Reason: Hypoglycemia Protocol Stop: 08/29/24 08:00 Enoxaparin Sodium (Enoxaparin Inj 40 Mg/0.4 Ml Syr) 40 mg SQ QAM MAIDA Stop: 08/29/24 08:59 Last Admin: 07/31/24 08:46 Dose: 40 mg Glucagon (Glucagon For Inj 1 Mg Vial) 1 mg SQ UD PRN; Protocol PRN Reason: Hypoglycemia Protocol Stop: 08/29/24 08:00 Glucose (Glucose 40% Gel 15 Gm Tube) 15 - 30 gm PO UD PRN; Protocol PRN Reason: Hypoglycemia Protocol Stop: 08/29/24 08:00 Glucose (Glucose 10 Tab/Tube) 4 - 8 tab PO UD PRN; Protocol PRN Reason: Hypoglycemia Protocol Stop: 08/29/24 08:00 Promethazine HCl (Phenergan) 12.5 mg in 50.5 mls @ 202 mls/hr IV Q6H PRN PRN Reason: Nausea And Vomiting Stop: 08/29/24 05:07 Insulin Aspart (Insulin Aspart Per Unit Charge) 0 units SC ACHS MAIDA Stop: 08/29/24 08:00 Last Admin: 07/31/24 08:42 Dose: 4 units Insulin Glargine (Lantus Per Unit Charge) 10 units SQ DAILY COUNT INCLUDES THE [facility] Stop: 08/29/24 08:59 Last Admin: 07/31/24 08:42 Dose: 10 units Levothyroxine Sodium (Levothyroxine Sodium 200 Mcg Tablet) 200 mcg PO DAILYBB COUNT INCLUDES THE [facility] Stop: 08/30/24 06:29 Last Admin: 07/31/24 05:30 Dose: 200 mcg Lisinopril (Lisinopril 20 Mg Tab) 20 mg PO QAM COUNT INCLUDES THE [facility] Stop: 08/30/24 08:59 Last Admin: 07/31/24 08:45 Dose: 20 mg Miscellaneous (Carbohydrates For Hypoglycemia ) 15 - 30 gm PO UD PRN PRN Reason: Hypoglycemia Protocol Stop: 08/29/24 08:00 Pantoprazole Sodium (Pantoprazole 40 Mg Tab) 40 mg PO QAM COUNT INCLUDES THE [facility] Stop: 08/29/24 08:59 Last Admin: 07/31/24 08:45 Dose: 40 mg Rosuvastatin Calcium (Rosuvastatin Calcium 20 Mg Tab) 40 mg PO DAILY COUNT INCLUDES THE [facility] Stop: 08/29/24 08:59 Last Admin: 07/31/24 08:45 Dose: 40 mg Venlafaxine HCl (Venlafaxine Hcl Xr 75 Mg Capxr) 225 mg PO QAM COUNT INCLUDES THE [facility] Stop: 08/30/24 08:59 Last Admin: 07/31/24 08:46 Dose: 225 mg
[2024-07-31 12:14] VITALS: O2SAT 96
[2024-07-31 15:11] VITALS: PULSE 78; RESP 18; TEMP 98.4
[2024-07-31 16:29] LABS: Calcium 8.9 mg/dl (8.6-10.3); Potassium 3.6 mmol/L (3.5-5.1)
[2024-07-31 18:05] VITALS: BP 122/79
--- NOTE | 2024-08-01 08:45 | Discharge Summary ---
Date of Service August 01, 2024 Admission HPI Per Admitting Provider History obtained from patient and records. Medical history significant for hypertension, hyperlipidemia, GERD, DM2 on oral medications, hypothyroidism, IBS, polycystic ovaries as per records, mood disorder Last confinement 2010 for enteritis and UTI. Few days history of worsening nausea symptoms without headache, abdominal pain, vomiting, chest pain, SOB. Usual loose stools as per patient. Symptoms started a day after last dose of weekly Ozempic Rx. No change in Ozempic dose for about 2 years now as per patient. Poor appetite at home. Patient consulted ER for evaluation. Medical History as above Surgical History : Tonsillectomy/adenoidectomy, appendectomy, cholecystectomy, dental surgery Family History : DM, skin cancer Personal/Social history : Non-smoker, no EtOH intake, [employer] employee Admission Exam Per Admitting Provider Physical Exam: GENERAL: Comfortable, pleasant, obese, no respiratory distress SKIN: Normal color, warm HEENT: [place] palpebral conjunctivae, no ptosis, dry buccal mucosa NECK : Supple, short neck, no tenderness CHEST : CTA, no tenderness HEART : RRR, no obvious murmurs ABDOMEN: Some distention, nontender EXTREMITIES : Bilateral LE swelling, no LE tenderness, palpable pulses, no other conspicuous deformities noted NEUROLOGIC : Coherent, no facial asymmetry, no other gross focality Principal Diagnosis Nausea,Hypokalemia Discharge Exam Lying in bed without any acute distress Constitutional well developed, well nourished, + ill appearing and + obese Eyes PERRL, conjunctivae normal, anicteric sclerae ENMT external ear and nose normal, oropharynx normal Neck trachea midline, no thyromegaly Respiratory no respiratory distress Auscultation: lungs clear to auscultation bilaterally Cardiovascular Rate/Rhythm: regular rate and regular rhythm; not tachycardic Heart Sounds: normal S1 and normal S2; no murmur Extremities: no edema Gastrointestinal (Abdomen) Inspection/Auscultation: + abdomen distended and normal bowel sounds Percussion/Palpation: abdomen soft; abdomen nontender Neurologic normal touch/pain/proprioception and moves all extremities; no focal motor deficits Psychiatric A+Ox3, euthymic affect Lymphatic no cervical or axillary lymphadenopathy Discharge Data Allergies Allergy/AdvReac Type Severity Reaction Status Date / Time No Known Allergies Allergy Mild Verified 07/30/24 05:36 Consultations 07/30/24 04:59 ED Decision to Admit Stat Hospital Course (1) Acute hypokalemia: Intractable nausea-has not been able to keep anything down for the last day or 2 Denies any vomiting or diarrhea Noted to have significant hypokalemia on admission Multifactorial: Decreased p.o. intake secondary to severe nausea symptoms possibly from home Ozempic Rx, patient maintenance dose may need to be decreased by prescribing pharmacist Home diuretic contributory Has been receiving intravenous potassium supplement and regular monitored while in the hospital Consider decreasing maintenance Ozempic dose on discharge given nausea symptoms leading to decreased p.o. intake Potassium remains low at 3.1 and she was given 20 IV and 40 oral Diet advanced to regular diabetic and if a recheck of PRP is normal she will be going home this afternoon For ongoing nausea and hypokalemia her watch intake will be on hold and further dosing and/or restarting will be as per PCP Hypertension, elevated secondary to discomfort Hyperlipidemia, on statin Rx GERD, stable on PPI DM2 on oral medications, suboptimal control as of hemoglobin A1c of 9.4 from 2022-hemoglobin A1c is 8.9 as of 07/30/2024 -Basal bolus insulin adjusted for clear liquid diet for now, ISS BG goal 110- 140, carb count coverage, update hemoglobin A1c Hypothyroidism, TSH markedly elevated secondary to noncompliance with medication, patient missed taking prescription the last few months for unclear reasons Levothyroxine 200 mcg p.o. daily (patient home dose 150 mcg p.o. daily), recheck TSH outpatient after 6 weeks She will have TSH checked in about 6 weeks as an outpatient DVT prophylaxis per Lovenox subcu Full code Total Time Total Time Spent Total Time Spent (In Minutes): 35 minutes Discharge Plan Discharge Items Patient Disposition: Home - Self-Care Reason For Visit: HYPOK Discharge Diagnosis: Nausea,Hypokalemia Condition on Discharge: Good Activity: Resume your previous activity Non-emergency contact: Primary Care Provider Call non-emergency contact if: you have any medication questions and your symptoms worsen Follow-up/Referrals: Rajinder Meza MD [Primary Care Provider] - 08/07/24 11:00 am (Date & Time 08/07/2024 11:00 AM Provider: Rajinder Meza III, MD [facility] ) Diet: Carb Consistent or DM2 Addtl Attending Provider Instructions: Please take precautions to avoid falls Your thyroid is underactive so we have increased your medicine to 150 mcg daily You will need to have a TSH checked in about 3 to 4 weeks to adjust the doses of your levothyroxine Your Ozempic discontinued but I did ask you to make sure from your PCP that it is okay or the dose may need to be reduced due to ongoing symptoms Pending Studies at Discharge: No Stand-Alone Forms: [facility], Smoking Cessation Medications and DC Order Prescriptions: New levothyroxine 150 mcg tablet 150 mcg PO DAILY Qty: 30 0RF Continued venlafaxine 150 mg capsule,extended release 24hr 225 mg PO QAM Rx Instructions: Please clarify dose and frequency with patient aripiprazole 5 mg tablet 5 mg PO DAILY metformin 1,000 mg tablet 1,000 mg 2XD omeprazole 20 mg capsule,delayed release(DR/EC) 20 mg DAILY Ozempic 2 mg/dose (8 mg/3 mL) pen injector 2 mg SUBCUT WK dapagliflozin propanediol [Farxiga] 10 mg tablet 10 mg DAILY lisinopril-hydrochlorothiazide 10-12.5 mg tablet 10 - 12.5 tab DAILY rosuvastatin 40 mg tablet 40 mg PO DAILY diclofenac sodium 1 % gel 1 inch TOPICAL 3XD PRN (Reason: Pain) ondansetron HCl 4 mg Tablet 4 mg PO Q6H PRN (Reason: Nausea) Discontinued levothyroxine 125 mcg tablet 125 mcg DAILY Patient Comments: Forgot to refill after 2024, hasn't taken since. Discharge Orders: Discharge Order (Routine); Ordered 07/31/24 Ordered By: Nam Gayle/Other Patient Handouts: Managing Type 2 Diabetes Admission Data Admit Date/Time: 07/30/24 05:45 Attending Provider: Nam Medina Admit Provider: Tay Wagner Primary Care Provider: Rajinder Meza Other Providers: Tay Wagner Other Interventions: Discharge Summary Assessment (RN) Last Done: 07/31/24 18:04
== END 2024-07-31 18:35 | disposition home or self-care (01) | DRG 641 ==
LOC: ED 02:23 → EDINP 05:45 → 2N 08:02